=== PATIENT | female | born 1985 | race Caucasian/White ===

== ENCOUNTER 2019-06-07 11:23 | Outpatient (CLI) | payer OTHER, SELFPAY ==
[2019-06-08 16:00] LABS: Lamotrigine 7.8 mcg/mL (2.5 - 15.0)
== END 2019-06-07 11:43 ==
PROVIDERS: PCP Family Medicine; Visit Provider Psychiatry & Neurology Neurology
DX: G40.909 Epilepsy, unspecified, not intractable, without status epilepticus (principal); Z51.81 Encounter for therapeutic drug level monitoring
CPT/HCPCS: 36415; 80175

== ENCOUNTER 2021-03-08 09:29 | Emergency (ER) | payer OTHER, SELFPAY ==
[2021-03-08] VITALS (40 sets, daily range): BP systolic 98–132; BP diastolic 60–102; PULSE 75–118; RESP 11–24; TEMP 37.3; O2SAT 98–100
--- NOTE | 2021-03-08 09:30 | RT.EKG_ITS ---
APPROVED REPORT Exam: Resting ECG Reason for Exam: sob Patient Location: E HR:97 bpm ECG Measurements Heart Rate 97 AXIS DE 135 P 65 QRSd 92 QRS 48 QT 323 T 46 QTc 412 Conclusion Sinus rhythm...normal P axis, V-rate 60- 99 Probable left atrial enlargement...P >50mS, <-0.10mV V1
--- NOTE | 2021-03-08 09:30 | DI.CT_ITS ---
Exam(s) CT CHEST PE CTA EXAM: CT CHEST PE CTA CLINICAL HISTORY: shortness of breath. TECHNIQUE: Imaging Protocol: Axial CT angiography was performed with multi-slice acquisition and mu lti-planar and/or 3D reconstructions. CONTRAST MATERIAL: Intravenous: Omnipaque 350 Contrast volume:structured data in ml COMPARISON: No exams were available for comparison FINDINGS: CT angiography of the chest was performed with intravenous infusion of 100 cc of Omnipaque 350. The lungs are clear. No pleural effusion. Tracheobronchial tree appears intact. No evidence of pulmonary embolic disease. Thoracic aorta is of normal diameter, no thoracic aortic an eurysm or dissection, major branch vessels appear intact. No mediastinal or hilar adenopathy. Images obtained through the upper abdomen show unremarkable appearance of the visualized portions of the liver, spleen, pancreas, adrenals, and kidneys. IMPRESSION: Negative CT angiogram of the chest. No evidence of pulmonary embolic disease. RADIATION DOSE DELIVERED: 422.69mGy.cm Total DLP 422.69mGy.cm Total DLP 12.57mGy CTDIvol DATA REPOSITORY: All CT scans at this facility are submitted to the National Radiology Data Registry (NRDR) Dose Index Registry (DIR) with the [employer] (ACR). RADIATION OPTIMIZATION: All CT scans at this facility use at least one of these dose optimization te chniques: automated exposure control; mA and/or kV adjustment per patient size (includes targeted exa ms where dose is matched to clinical indication); or iterative reconstruction.
--- NOTE | 2021-03-08 09:48 | ED.GENADUL_ITS ---
Discharge Plan Disposition Patient Disposition: HOME Condition: Stable Discharge Details Clinical Impression: Palpitations, Shortness of breath Primary Care Provider: Sahara Petersen ED Provider: Yon Carreon Home Meds and New Rx's Prescriptions: Continued calcium carbonate-vitamin D3 500 mg(1,250mg) -200 unit tablet 1 tab PO BID RF: 0 hydrocodone-acetaminophen [[place]] 5-325 mg tablet 1 tab PO Q8H MDD 15mg PRN (Reason: pain) Qty: 20 RF: 0 lamotrigine 200 mg tablet 200 mg PO BID RF: 0 Multiple Vitamin, Womens Tablet 1 tab PO DAILY RF: 0 Nortrel 1/35 (28) 1-35 mg-mcg tablet 1 tab PO DAILY RF: 0 gabapentin 300 mg capsule 300 mg PO BID Qty: 180 RF: 3 Discharge Instructions Instructions: Heart Palpitations (ED) Additional Instructions: your vital signs, cat scan and lab work did not show any concerning findings at this time follow up with your primary care provider this week especially if symptoms continue if you feel more ill, have worsening trouble breathing or severe worsening pain return to the emergency department Medical Decision Making 35 yo female with hx of epilepsy who comes in with chief complaint of shortness of breath. She states she was diagnosed with covid last July and since then has had intermittent shortness of breath. She was outside and got into her car and felt palpitations and shortness of breath, had a o2 saturation monitor and said it was 80% so came here. She denies fevers, chest pain or cough. she is 100% on room air on arrival though is intermittently tachycardic to 120 in sinus rhythm. No leg swelling, no jvd, clear lung sounds. I suspect her low o2 monitor was from a faulty monitor or having cold fingers but given her heart rate and symptoms of palpitations will evaluate for nstemi. She has a moderate wells score given PE is just as likely a diagnosis as other possibilities so will evaluate with cta and reassess. Given clear lungs doubt asthma or reactive airway disease. pt stable and has normal vitals, all imaging and lab work unremarkable, will obtain delta troponin. HR now 80 pt remains stable and asymptomatic, repeat troponin negative, she is stable for d/c and advised to f/u with pcp return precautions given Differential Diagnosis Differential Diagnosis: covid, pneumonia, pe, cold fingers Medical Records Medical records reviewed: Yes I reviewed the patient's medical records. Imaging Data Radiologic Study: Attestation: I personally reviewed and interpreted this imaging study as follows: Imaging: CT Scan Radiologist's impression: No acute findings. Lab Data Lab results reviewed: Yes I reviewed the patient's lab results. ECG Data Attestation: I personally reviewed and interpreted this ECG (s) as follows: Prior ECG tracings: not available for review Interpretation: sinus rhythm, rate of HPI General Mode of arrival: ambulatory . Date/Time Provider Initiated Documentation: 03/08/21 09:32 . Limitations to Documentation: no limitations . Information obtained by: patient . History of Present Illness 35 year old F presents to the emergency department with the chief complaint of shortness of breath, described as moderate, Patient started experiencing this month(s) (5) and it has been intermittent. No relieving factors improve symptom(s), No exacerbating factors reported . Patient notes other (palpitations). Patient did receive the following treatments prior to arrival, none Related Data Home Medications Medication Instructions Recorded Confirmed lamotrigine 200 mg tablet 200 mg PO BID 04/30/19 03/08/21 bnxfwsfieyeb-Lw-fsle-minerals 1 tab PO DAILY tab 04/30/19 03/08/21 norethindrone 1 mg-ethinyl 1 tab PO DAILY 04/30/19 03/08/21 estradiol 35 mcg tablet calcium carbonate 500 mg (1,250 1 tab PO BID 06/07/19 03/08/21 mg)-vitamin D3 200 unit tablet hydrocodone 5 mg-acetaminophen 325 1 tab PO Q8H PRN #20 tab MDD 15mg 06/07/19 03/08/21 mg tablet gabapentin 300 mg capsule 300 mg PO BID #180 cap 08/25/20 03/08/21 Previous Rx's Medication Instructions Recorded hydrocodone 5 mg-acetaminophen 325 1 tab PO Q8H PRN #20 tab MDD 15mg 06/07/19 mg tablet gabapentin 300 mg capsule 300 mg PO BID #180 cap 08/25/20 Allergies Allergy/AdvReac Type Severity Reaction Status Date / Time No Known Allergies Allergy Verified 03/08/21 10:05 General Stated Complaint: RespSymp LEATHA: 3 Review of Systems All systems reviewed & are unremarkable except as noted in HPI and below Constitutional Constitutional: Denies chills, Denies fever(s) and Denies weakness Cardiovascular Cardiovascular: Denies chest pain Respiratory Respiratory: Denies cough Gastrointestinal Gastrointestinal: Denies abdominal pain, Denies nausea and Denies vomiting Musculoskeletal Musculoskeletal: Denies joint swelling Neurologic Neurologic: Denies weakness [facility] Medical History (Updated 03/08/21 @ 12:10 by Yon Carreon MD) Cervico-occipital neuralgia Cubital tunnel syndrome on right Depression Epilepsy 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; 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 Surgical History History of bunionectomy R 2016 S/P ear surgery L middle ear x2 Family History Mother Acute arthritis Epilepsy Hepatic failure due to alcoholism Alcohol abuse Maternal Grandfather Colon cancer Nephew Seizures Maternal Cousin Dystonia Maternal Uncle Diabetes Myocardial infarction Social History Smoking/Tobacco Use Status: Never Smoking risk assessment performed?: Yes Alcohol Intake: current Alcohol Intake frequency: holidays/special occasions only Drug use: Never Household members: significant other Number of Children: 0 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[employer]; 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 What is your relationship status?: never Panel score (0-1 are the most socially isolated patients): 0 Seatbelt use: always Do you feel safe at home: Yes Do you feel safe in your relationship?: Yes Additional Social history: MODERATE CAFFEINE INTAKE-2 CUPS OF COFFEE OR TEA PER DAY Exam Const General: no acute distress Orientation: alert HENMT Head: normal to inspection Ears: external ears normal General nose exam: external nose normal Mouth: moist mucous membranes Eyes General: appearance normal, both eyes and all related structures Neck Neck: normal visual inspection Resp Effort & Inspection: normal respiratory effort and able to speak in complete sentences Cardio Rate: regular rate Skin General skin exam: no rashes or lesions noted Neuro General: patient alert and patient oriented x3 Extrem General: normal to inspection Psych Mental Status: mental status grossly normal Course Vital Signs Vital signs: Vital Signs Temperature 37.3 C 03/08/21 09:37 Pulse 105 H 03/08/21 09:37 Respiratory Rate 20 03/08/21 09:37 Blood Pressure 132/84 03/08/21 09:37 Pulse Oximetry 100 03/08/21 09:37 Temperature 37.3 C 03/08/21 09:37 Temperature Source Temporal Artery Scan 03/08/21 09:37 Pulse 105 H 03/08/21 09:37 Respiratory Rate 20 03/08/21 09:37 Blood Pressure 132/84 03/08/21 09:37 Blood Pressure Position Sitting 03/08/21 09:37 Pulse Oximetry 100 03/08/21 09:37 Oxygen Delivery Method Room Air 03/08/21 09:37 Oxygen Flow Rate 0 03/08/21 09:37
[2021-03-08 10:01] LABS: Source Nasal/Nares
[2021-03-08 10:01] LABS: BE (Venous) 1 mmol/L (-2-3); HCO3 (Venous) 27 mmol/L (23-28); O2 Sat (Venous) 74 %; TCO2 (Venous) 24 mmol/L (24-29); pCO2 (Venous) 50 mmHg (41-51); pH (Venous) 7.34 (7.31-7.41); pO2 (Venous) 41 mmHg
[2021-03-08] MEDS: Normal Saline 1,000 ML 1000 ML IV (10:01)
[2021-03-08 10:02] LABS: Absolute Basophil Count 0.06 10^3/uL (0.0-0.2); Absolute Eosinophil Count 0.04 10^3/uL (0.0-0.7); Absolute Lymphocyte Count 2.03 10^3/uL (1.2-3.4); Absolute Monocyte Count 0.26 10^3/uL (0.1-0.8); Absolute Neutrophil Count 2.45 10^3/uL (1.2-6.7); Basophils % 1.2; Eosinophils % 0.8; HCT 42.9 % (36.0-46.0); HGB 14.3 g/dL (11.2-15.7); Lymphocytes % 41.9; MCH 28.5 pg (27.0-33.0); MCHC 33.3 % (32.0-36.0); MCV 85.6 fL (80-95); MPV 9.1 fL (8.0-11.0); Monocytes % 5.4; Neutrophils % 50.7; Nucleated RBC 0 %; Platelet Count 256 10^3/uL (130-400); RBC 5.01 10^6/uL (3.93-5.22); RDW 11.7 % (11.7-14.6); RDW-SD 36.5 fL; WBC 4.84 10^3/uL (4.4-10.8)
[2021-03-08] MEDS: Normal Saline - Diluent 50 ML VIAL IV (10:15)
[2021-03-08] MEDS: Normal Saline Flush 10 ML SYR IVP (10:15)
[2021-03-08] MEDS: Omnipaque 350 MG/ML 100 ML BTL IJ (10:16)
[2021-03-08 10:22] LABS: ALT 47 U/L (14-59); AST 21 U/L (15-37); Albumin 4.2 g/dL (3.4-5.0); Alkaline Phosphatase 67 U/L (46-116); BUN 11 mg/dL (7-18); Bilirubin, Total 0.4 mg/dL (0.2-1.0); CREATININE 0.9 mg/dL (0.55-1.02); Calcium 8.8 mg/dL (8.5-10.1); Chloride 105 mmol/L (98-107); Glucose 136 mg/dL (74-106); Potassium 3.6 mmol/L (3.5-5.1); Sodium 142 mmol/L (136-145); Total Protein 7.4 g/dL (6.4-8.2)
[2021-03-08 10:23] LABS: Troponin I < 0.05 ng/mL (<0.06)
--- NOTE | 2021-03-08 10:50 | DI.VRAD_ITS ---
PROCEDURE INFORMATION: Exam: CTA Chest With Contrast Exam date and time: 03/08/2021 9:43 AM Age: 35 years old Clinical indication: Patient HX: Shortness of breath, PT had covid in July 2020 TECHNIQUE: Imaging protocol: Computed tomographic angiography of the chest with contrast. 3D rendering (Not supervised by radiologist): MIP and/or 3D reconstructed images were created by the technologist. Radiation optimization: All CT scans at this facility use at least one of these dose optimization techniques: automated exposure control; mA and/or kV adjustment per patient size (includes targeted exams where dose is matched to clinical indication); or iterative reconstruction. Contrast material: OMNIPAQUE 350; Contrast volume: 100 ml; Contrast route: INTRAVENOUS (IV); COMPARISON: No relevant prior studies available. FINDINGS: Pulmonary arteries: Normal. No pulmonary emboli. Aorta: Unremarkable. No aortic aneurysm. No aortic dissection. Lungs: Unremarkable. No consolidation. No masses. Pleural spaces: Unremarkable. No pneumothorax. No pleural effusion. Heart: Unremarkable. No cardiomegaly. No pericardial effusion. Lymph nodes: Unremarkable. No enlarged lymph nodes. Bones/joints: Unremarkable. No acute fracture. Soft tissues: Unremarkable. IMPRESSION: No acute findings. Dictated and Authenticated by: Leslie Avila MD. Ordering:LESVIA Marvin MD
[2021-03-08 10:53] LABS: COVID-19 PCR Negative (Negative)
--- NOTE | 2021-03-08 11:24 | NUR.NOTE ---
Ambulated to bathroom, tolerated well.
[2021-03-08 13:04] LABS: Troponin I < 0.05 ng/mL (<0.06)
== END 2021-03-08 13:35 | disposition home or self-care (01) ==
PROVIDERS: Emergency Provider Emergency Medicine; PCP Family Medicine
DX: U09.9 Post COVID-19 condition, unspecified (principal); R06.02 Shortness of breath; R00.2 Palpitations; R00.0 Tachycardia, unspecified; Z20.822 Contact with and (suspected) exposure to COVID-19; Z03.818 Encounter for observation for suspected exposure to other biological agents ruled out
CPT/HCPCS: 36415; 71275; 80053; 82805; 87635; 90471; 90686; 93005; 96360; 99285; 83735; 84484; 85025; 93010; J3490

== ENCOUNTER 2021-06-04 13:00 | Outpatient (CLI) | payer OTHER, SELFPAY | END 2021-06-04 13:01 | disposition home or self-care (01) | LOC: RT 13:00 | PROVIDERS: PCP Nurse Practitioner; Visit Provider Psychiatry & Neurology Neurology | DX: R00.2 Palpitations (principal) | CPT/HCPCS: 93270 ==

== ENCOUNTER 2021-06-17 15:25 | Outpatient (REF) | payer OTHER, SELFPAY ==
--- NOTE | 2021-06-17 14:40 | PAPFT_PTH ---
PATIENT: Yarelis Hargrove LOC: [facility] U#:[id number] AGE/SX: 35/F ROOM: RE06/17/[address]: Rocio Carreon NP : 1985 BED: DIS: 06/17/2021 SPEC #: [id number] RECD: 06/17/21 17:47 STATUS: SONY PINON #: [id number] DARLENE: 06/17/21 14:[address]: Rocio Carreon NP DEPT: [facility] Cytology RECD BY: Elis Durbin ENTERED: 06/17/21 17:47 SP TYPE: PAPFT FABIOLA DR: Yelitza Kate APRN Tissues: 1 - CX/ENDOCX FOR PAP SMEARS Procedures: PAP THIN PREP/UVM Screening HPV DNA PROBE Comments: [id number]
== END 2021-06-17 15:26 | disposition home or self-care (01) ==
LOC: LBN 15:25
PROVIDERS: PCP Nurse Practitioner; Visit Provider Nurse Practitioner Women's Health
DX: Z12.4 Encounter for screening for malignant neoplasm of cervix (principal); Z11.51 Encounter for screening for human papillomavirus (HPV)
CPT/HCPCS: 88142; 87624

== ENCOUNTER 2021-07-01 16:13 | Outpatient (REF) | payer OTHER, SELFPAY ==
[2021-07-01 13:45] LABS: D-Dimer 207 ng/mlFEU (<500)
[2021-07-01 14:31] LABS: Calculated LDL 123 mg/dL (<100); Cholesterol 201 mg/dL (<200); HDL Cholesterol 68 mg/dL (40-60); NT-proBNP 57 pg/mL (<300); TSH (W/Ref FT4) 0.53 uIU/mL (0.36-3.74); Triglyceride 51 mg/dL (<150)
[2021-07-01 15:11] LABS: Hemoglobin A1C 5.1 % (<5.7)
[2021-07-02 08:23] LABS: IgA 155 mg/dL (85-499); IgG 730 mg/dL (610-1,616); IgM 97 mg/dL (35-242)
[2021-07-03 10:35] LABS: IgE 4 IU/mL (<158)
== END 2021-07-01 16:14 | disposition home or self-care (01) ==
LOC: LBN 16:13
PROVIDERS: PCP Nurse Practitioner; Visit Provider Student in an Organized Health Care Education/Training Program
DX: U09.9 Post COVID-19 condition, unspecified (principal)
CPT/HCPCS: 80061; 82784; 82785; 82787; 83036; 83880; 84443; 85379

== ENCOUNTER 2021-07-06 04:40 | Outpatient (CLI) | payer OTHER, SELFPAY ==
--- NOTE | 2021-07-06 09:02 | W.CARDEVENT ---
Date of service: 07/06/21 Time of Service: 09:02 Cardiac Event Recorder Referring Provider:: lila Indications:: palps Cardiac Event Note: This is a 30-day recorder order for indication of palpitations. ?The patient was normal sinus rhythm for majority the recording with an average heart rate of 87 bpm. ?There were 37 patient triggered events described as lightheadedness, fatigue, short of breath, dizziness. This patient triggered events were associated with sinus rhythm, sinus tachycardia as well as an occasional PVC. There was one episode of a 4 beat run of NSVT that was also symptomatic. ?There were no episodes of atrial fibrillation, no pauses greater than 3 seconds and no evidence of high degree heart block.
[2021-07-06] MEDS: Methacholine 100 MG VIAL IH (17:19)
[2021-07-06] MEDS: Albuterol HFA 18 GM 200 PUFF INH IH (17:19)
[2021-07-06] MEDS: Inhaler, Assist Device 1 EACH MC (17:19)
== END 2021-07-06 04:41 | disposition home or self-care (01) ==
PROVIDERS: PCP Nurse Practitioner; Visit Provider Student in an Organized Health Care Education/Training Program
DX: R06.09 Other forms of dyspnea (principal); R07.89 Other chest pain; U09.9 Post COVID-19 condition, unspecified; R94.2 Abnormal results of pulmonary function studies
CPT/HCPCS: 94060; 94070; 94726; 94729; 94010; J7674

== ENCOUNTER 2022-03-10 15:37 | Outpatient (CLI) | payer MEDICAID, SELFPAY ==
[2022-03-10 17:27] LABS: Abs Immature Grans 0.02 10^3/uL (0.0-0.06); Absolute Basophil Count 0.06 10^3/uL (0.0-0.2); Absolute Eosinophil Count 0.04 10^3/uL (0.0-0.7); Absolute Lymphocyte Count 1.99 10^3/uL (1.2-3.4); Absolute Monocyte Count 0.31 10^3/uL (0.1-0.8); Absolute Neutrophil Count 4.72 10^3/uL (1.2-6.7); Basophils % 0.8; Eosinophils % 0.6; HCT 40.1 % (36.0-46.0); HGB 13.5 g/dL (11.2-15.7); Immature Grans % 0.3; Lymphocytes % 27.9; MCH 28.8 pg (27.0-33.0); MCHC 33.7 % (32.0-36.0); MCV 86 fL (80-95); MPV 9.7 fL (8.0-11.0); Monocytes % 4.3; Neutrophils % 66.1; Platelet Count 315 10^3/uL (130-400); RBC 4.69 10^6/uL (3.93-5.22); RDW 12.6 % (11.7-14.6); RDW-SD 38.9 fL; WBC 7.14 10^3/uL (4.4-10.8)
[2022-03-12 10:29] LABS: IgE 9 IU/mL (<158)
[2022-03-12 15:56] LABS: Aspergillus Fumigatus IgE <0.35 kU/L; Aspergillus Niger, IgE <0.35 kU/L; Bermuda Grass IgE <0.35 kU/L; Cat Epithelium IgE <0.35 kU/L; Cedar, IgE <0.35 kU/L; Cladosporium IgE <0.35 kU/L; Cockroach IgE <0.35 kU/L; Cottonwood IgE <0.35 kU/L; Curvularia Lunata, IgE <0.35 kU/L; D Farinae IgE <0.35 kU/L; D Pteronyssinus IgE <0.35 kU/L; Dog Dander IgE <0.35 kU/L; Douglas Fir, IgE <0.35 kU/L; Epicoccum purpurascens IgE <0.35 kU/L; Fusarium moniliforme, IgE <0.35 kU/L (<0.35); Giant Ragweed IgE <0.35 kU/L; House Dust/Greer Lab, IgE <0.35 kU/L; Mouse Serum Protein IgE <0.35 kU/L; Penicillium chrysogenum IgE <0.35 kU/L; Silver Birch IgE <0.35 kU/L; Timothy Grass IgE <0.35 kU/L; White Pine, IgE <0.35 kU/L; Willow IgE <0.35 kU/L
[2022-03-16 09:52] LABS: CLASS 0; Cedar Red IgE <0.10 kU/L (<0.35)
== END 2022-03-10 15:38 | disposition home or self-care (01) ==
LOC: LBN 15:41
PROVIDERS: PCP Nurse Practitioner; Visit Provider Student in an Organized Health Care Education/Training Program
DX: J45.909 Unspecified asthma, uncomplicated (principal); Z01.82 Encounter for allergy testing
CPT/HCPCS: 86003; 82785; 85025

== ENCOUNTER → 2023-12-02 14:42 | Outpatient (CLI) | payer MEDICAID, SELFPAY ==
--- NOTE | 2023-12-02 09:45 | DI.RAD_ITS ---
Exam(s) XR KNEE LT 4V AP,LAT,BHUPENDRA,PAT EXAM: XR KNEE LT 4V AP,LAT,BHUPENDRA,PAT CLINICAL HISTORY: S89.92XA Injury LLL Likely meniscal tear. TECHNIQUE: 2D digital imaging was performed. Three views. COMPARISON: No exams were available for comparison FINDINGS: BONES: No acute fracture is present. No bony destructive lesion is seen. JOINTS: The knee is normally aligned. No joint effusion is seen. SOFT TISSUE: Normal. IMPRESSION: Normal radiographs of the left knee. DATA REPOSITORY: RADIATION DOSE DELIVERED:
--- OUTSIDE RECORDS SUMMARY | 2023-12-02 14:47 | XMS_ITS | Referral Summary ---
Author Organization [facility] Address [address] [place] [address] Care Team Providers Care Management Planner Name Role Phone None, Provider Primary Care Provider Brett Slade MD Unavailable [phone] Allergies No known active allergies Medications Medication Sig Dispensed Refills Start Date End Date Status LAMOTRIGINE ORAL Take 250 mg by mouth 2 times daily. Active norgestimate-ethinyl estradiol (ORTHO TRI-CYCLEN LO) 0.18/0.215/0.25 mg-25 mcg (28) tablet Take 1 Tab by mouth daily. Active MULTIVITAMIN ORAL Take by mouth 2 times daily. Active doxycycline (VIBRAMYCIN) 100 mg capsule Take 100 mg by mouth daily. Active clindamycin (CLEOCIN T) 1 % external solution Apply topically daily use thin film on affected area . Active spironolactone (ALDACTONE) 50 mg tablet Take 1 Tab by mouth 2 times daily. 180 Tab 0 06/06/2014 Active Active Problems Problem Noted Date Diagnosed Date Acne 04/05/2014 Social History Tobacco Use Types Packs/Day Years Used Date Smoking Tobacco: Never Smokeless Tobacco: Never Alcohol Use Standard Drinks/Week Comments No 0 (1 standard drink = 0.6 oz pur e alcohol) Interpersonal Safety Answer Date Record ed Physically Hurt Never 12/02/2019 Verbally Threaten Not on file 12/02/2019 Sex and Gender Information Value Date Recorded Sex Assigned at Not on file Gender Identity Not on file Sexual Orientation Not on file Plan of Treatment Not on file Care Teams Management Planner Relationship Specialty Start Date End Date None, Provider PCP - General 10/01/19 Brett Fregoso MD 10/01/19
--- OUTSIDE RECORDS SUMMARY | 2023-12-02 14:47 | XMS_ITS | Encounter Summary ---
Author Organization [facility] Address [address] [place] [address] Care Team Providers Care Curtain Stretcher Name Role Phone Brett Fregoso MD Primary Care Provider Reason for Visit * Reason Onset Date Comments Other 05/03/2014 Encounter Details Date Type Department Care Team (Late st Contact Info) Description 05/03/2014 Telephone [facility] Dermatology 3rd Floor [address] [id number] Silvina Morgan PA-C [address], [address] [place] [address] Other Social History Tobacco Use Types Packs/Day Years Used Date Smoking Tobacco: Never Smokeless Tobacco: Never Alcohol Use Standard Drinks/Week Comments No 0 (1 standard drink = 0.6 oz pur e alcohol) Sex and Gender Information Value Date Recorded Sex Assigned at Not on file Gender Identity Not on file Sexual Orientation Not on file documented as of this encounter Miscellaneous Notes * Telephone Encounter - Catalina Lopez - 05/03/2014 1517 EST Spoke with patient. Informed patient that her lab results were normal. Patient verbalized understanding and had no further questions. Catalina Lopez 05/03/2014 15:17 * Telephone Encounter - Ludwig James IV - 05/03/2014 1453 EST Patient returning call about lab results. Please call back. documented in this encounter Plan of Treatment Not on file documented as of this encounter Visit Diagnoses Not on filedocumented in this encounter Care Teams Curtain Stretcher Relationship Specialty Start Date End Date Brett Fregoso MD PCP - General 02/07/14 09/30/19 documented as of this encounter
--- OUTSIDE RECORDS SUMMARY | 2023-12-02 14:47 | XMS_ITS | Encounter Summary ---
Author Organization [facility] Address [address] [place] [address] Care Team Providers Care Assembly Inspector Helper Name Role Phone None, Provider Primary Care Provider Brett Slade MD Unavailable Encounter Details Date Type Department Care Team (Late st Contact Info) Description 10/22/2019 Lab Requisition [facility] Pathology & Laboratory Medicine - [address] [address] Gisele Veronica, SIGNAL INTELLIGENCE ANALYST [address] [place] [address] Encounter for other general examination Social History Tobacco Use Types Packs/Day Years Used Date Smoking Tobacco: Never Assessed Sex and Gender Information Value Date Recorded Sex Assigned at Not on file Gender Identity Not on file Sexual Orientation Not on file documented as of this encounter Plan of Treatment Not on file documented as of this encounter Procedures Procedure Name Priority Date/Time Associated Diagnosis Comments SURGICAL PATHOLOGY Today 10/22/2019 11 :00 EDT documented in this encounter Results * SURGICAL PATHOLOGY (10/22/2019 11:00 EDT) Final Diagnosis A. SKIN OF STERNUM, PUNCH BIOPSY: - Features consistent with dermal scar. See microscopic and comment. 10/26/2019 13:[address] [facility] at 1348 Attestation By the signature below, the attending physician certifies that they have 1) personally conducted a gross and/or microscopic examination of the described specimen(s), and/or personally interpreted the results of laboratory testing of the described specimen(s), and 2) personally rendered or confirmed the above diagnosis. 10/26/2019 13:49 [facility] at 1348 Diagnosis Comment Multiple levels of the biopsy have been reviewed. Best represented on deeper sections within the dermis is a nodular spindle cell proliferation which shows myofibroblastic differentiation, consistent with scar formation. Features to support a dermatofibroma are not noted, despite additional sections and immunohistochemical stains, Review of our clinical records does not reveal a prior biopsy from this site. Clinical correlation is recommended. Farmworkers slides of this case were reviewed at the intradepartmental consultation conference. 10/26/2019 13:49 [facility] Microscopic Description Sections consist of a punch biopsy of skin. Within the dermis is a somewhat ill-defined, nodular spindle cell proliferation with associated reactive blood vessels and thickened collagen. Patchy lymphomononuclear inflammation is also noted. aSMA (alpha Smooth Muscle Actin (asm-1, Leica) shows strong staining of the spindled cells. Factor XIII A (AC-1A1, [place]) is negative within the spindled cells. SOX-10 ALK PHOS (SP267, [place]) is negative within the spindled cells. Multiple levels have been reviewed. NOTE: One or more of the reagents used in immunoperoxidase testing in this case may not have been cleared or approved by the U.S. Food and Drug Administration (FDA). The FDA has determined that such clearance or approval is not necessary. These tests are used for clinical purposes. They should not be regarded as investigational or for research. These reagents' performance characteristics have been determined by [facility] and/or by the referring laboratory. The positive and negative controls worked appropriately. If immunoperoxidase staining has been performed on alcohol fixed cytology specimens, which has not been fully validated, the assays should be interpreted with caution and correlated with clinical data. This laboratory is certified under the Clinical Laboratory Improvement Amendments of 1988 (CLIA-88) as qualified to perform high complexity clinical laboratory testing.? 10/26/2019 13:49 [facility] Clinical History Irritated skin lesion that is enlarging BCC vs. Dermatofibroma 10/26/2019 13:[address] [facility] Gross Description A. Received in formalin labelled with proper patient identification (initials P, A) and not otherwise specified is a punch biopsy of dover skin (0.4 cm in diameter by 0.2 cm in depth). The specimen is submitted intact in A1. Tyra Hayde 10/23/2019 8:34 10/26/2019 13:[address] [facility] Scanned Images 10/26/2019 13:[address] [facility] Tissue TISSUE SPECIMEN FROM SKIN / Unknown 10/22/2019 11:00 EDT 10/23/2019 7:46 EDT Gisele Veronica APRN PATHOLOGY ORDERABLES [facility] [address] [place] [address] documented in this encounter Visit Diagnoses Diagnosis Encounter for other general examination documented in this encounter Care Teams Assembly Inspector Helper Relationship Specialty Start Date End Date None, Provider PCP - General 10/01/19 Brett Fregoso MD 10/01/19 documented as of this encounter
--- OUTSIDE RECORDS SUMMARY | 2023-12-02 14:47 | XMS_ITS | Encounter Summary ---
Author Organization [facility] Address [address] [place] [address] Care Team Providers Care Aircraft Maintenance Director Name Role Phone None, Provider Primary Care Provider Brett Slade MD Unavailable [phone] Encounter Details Date Type Department Care Team (Late st Contact Info) Description 06/18/2021 Lab Requisition [facility] Pathology & Laboratory Medicine - [address] [address] Rocio Carreon, MEDICAL LABORATORY TECHNICIAN [address] [place] [id number] Encounter for other general examination Social History [...] Procedure Name Priority Date/Time Associated Diagnosis Comments PAP TEST Today 06/17/2021 14:40 EST Encounter for other general examination HPV DNA DETECTION WITH GENOTYPING, PCR Today 06/17/2021 14:40 EST Encounter for other general examination documented in this encounter Results * HUMAN PAPILLOMAVIRUS (HPV) DETECTION-HIGH RISK TYPES (06/17/2021 14:40 EST) HPV other High Risk types, PCR Negative Negative 06/27/2021 15:01 [facility] Comment:No E6 or E7 mRNA is detected from HPV types 16,18,31,33,35,39,45,51,52,56,58,59,66, and 68 by classroom technology coach mediated amplification. Papanicolaou smear specimen (specimen) CERVIX UTERI STRUCTURE / Unknown 06/17/2021 14:40 EST 06/25/2021 11:56 EST Rocio Carreon APRN MICROBIOLOGY - NERAL ORDERABLES [facility] [address] [place] [address] * PAP TEST (06/17/2021 14:40 EST) Specimens A. Cervix and/or Endocervix , ThinPrep Imaging System with Manual Evaluation 06/27/2021 15:01 [facility] Specimen Adequacy Satisfactory for Evaluation - transformation zone component present 06/27/2021 15:01 [facility] General Categorization Negative for intraepithelial lesion or malignancy 06/27/2021 15:01 [facility] Attestation . 06/27/2021 15:01 [facility] at 1501 Clinical History See below 06/27/19 15:01 [facility] HPV The result for the Human Papillomavirus (HPV) Detection-High Risk Types is Negative. No E6 or E7 mRNA is detected from HPV types 16,18,31,33,35,39 ,45,51,52,56,58,5 9,66, and 68 by classroom technology coach mediated amplification.Cici ting was performed on specimen [id number] and was resulted on 06/27/2021 1452 EST by RA, LAB INSTRUMENT RESULTS IN 06/27/2021 15:01 [facility] Performing Lab [facility] 06/27/2021 15:01 [facility] Scanned Images 06/27/2021 15:01 EST [facility] Papanicolaou smear specimen (specimen) CERVIX UTERI STRUCTURE / Unknown 06/17/2021 14:40 EST 06/18/2021 10:53 EST Rocio A Lauri MEDICAL LABORATORY TECHNICIAN PATHOLOGY ORDERAB LES [facility] [address] [place] [address] documented in this encounter Visit Diagnoses Diagnosis Encounter for other general examination documented in this encounter Care Teams Aircraft Maintenance Director Relationship Specialty Start Date End Date None, Provider PCP - General 10/01/19 Brett Fregoso MD 10/01/19 documented as of this encounter
--- OUTSIDE RECORDS SUMMARY | 2023-12-02 14:47 | XMS_ITS | Encounter Summary ---
Author Organization [facility] Address [address] [place] [address] Care Team Providers Care Piped Buttonhole Machine Operator Name Role Phone None, Provider Primary Care Provider Brett Slade MD Unavailable [phone] Encounter Details Date Type Department Care Team (Late st Contact Info) Description 03/11/2022 Lab Requisition [facility] Pathology & Laboratory Medicine - [address] [address] Outr Resulting Lab, Provider Social History Tobacco Use Types Packs/Day Years [...] Procedure Name Priority Date/Time Associated Diagnosis Comments IGE Routine 03/10/2022 15:05 EST documented in this encounter Results * IGE (03/10/2022 15:05 EST) IgE 9 <158 IU/mL 03/12/2022 10:25 EST [facility] Blood VENOUS BLOOD / Unknown 03/10/2022 15:05 EST 03/11/2022 17:41 EST Provider Outr Resulting Lab CHEMISTRY & BLOOD GAS ORDERABLES [facility] [address] [place] [address] documented in this encounter Visit Diagnoses Not on filedocumented in this encounter Care Teams Piped Buttonhole Machine Operator Relationship Specialty Start Date End Date None, Provider PCP - General 10/01/19 Brett Fregoso MD 10/01/19 documented as of this encounter
--- OUTSIDE RECORDS SUMMARY | 2023-12-02 14:47 | XMS_ITS | Encounter Summary ---
Author Organization [facility] Address [address] [place] [address] Care Team Providers Care Horse Show Manager Name Role Phone Unavailable Primary Care Provider Unavailabl e Reason for Visit * Reason Onset Date Comments Requesting Sooner Appointment 01/16/2014 Encounter Details Date Type Department Care Team (Late st Contact Info) Description 01/16/2014 Telephone [facility] Dermatology 3rd Floor [address] [phone] Nikita Snell MD [address] [facility], [address] [place] [address] Requesting Sooner Appointment Social History Tobacco Use Types Packs/Day Years Used Date Smoking Tobacco: Never Assessed Sex and Gender Information Value Date Recorded Sex Assigned at Not on file Gender Identity Not on file Sexual Orientation Not on file documented as of this encounter Miscellaneous Notes * Telephone Encounter - Christine Barnes RN - 01/16/2014 1641 EDT Unable to reach patient Contacted Xin in Dr. Conrad's office to let her know that once again we were unable to reach patient We do not run a cancellation list. CHRISTINE BARNES RN 01/16/2014 16:42 * Telephone Encounter - Evon Ellison - 01/16/2014 1555 EDT Patient would like to request a sooner appointment. Her acne is red, swollen, big bumps, little tiny bumps, pimples this is all on her lower half of her face and neck. She is complaining that it hurts. 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 Please call patient. documented in this encounter Plan of Treatment Not on file documented as of this encounter Visit Diagnoses Not on filedocumented in this encounter
--- OUTSIDE RECORDS SUMMARY | 2023-12-02 14:47 | XMS_ITS | Encounter Summary ---
Author Organization [facility] Address [address] [place] [address] Care Team Providers Care Decorator Lighting Fixtures Name Role Phone Brett Fregoso MD Primary Care Provider [phone] Reason for Visit * Reason Onset Date Comments Prior Auth, Medication 06/06/2014 Encounter Details Date Type Department Care Team (Late st Contact Info) Description 06/06/2014 [facility] 5th [facility] [address] [phone] Henry Jarvis RN Prior Auth, Medication Social History Tobacco Use Types Packs/Day Years Used Date Smoking Tobacco: Never Smokeless Tobacco: Never Alcohol Use Standard Drinks/Week Comments No 0 (1 standard drink = 0.6 oz pur e alcohol) Sex and Gender Information Value Date Recorded Sex Assigned at Not on file Gender Identity Not on file Sexual Orientation Not on file documented as of this encounter Ordered Prescriptions Prescription Sig Dispensed Refills Start Date End Da te spironolactone (ALDACTONE) 50 mg tablet Take 1 Tab by mouth 2 times daily. 180 Tab 0 06/06/2014 documented in this encounter Miscellaneous Notes * Telephone Encounter - Henry Jarvis RN - 06/07/2014 0908 EST Spoke to [place] Medication does not need pre authorization. 3 month supply was required by insurance company and now that they have received it, insurance has covered the cost. Medication has been filled and is ready for patient to sheepskin pickler. * Telephone Encounter - Andrea Moreira - 06/06/2014 1640 EST A prior authorization is needed for spironolactone (ALDACTONE) 50 mg tablet. * Telephone Encounter - Henry Jarvis RN - 06/06/2014 1546 EST (Please refer to previous refill encounter 06/06/14) Spoke to patient. She is currently not or . Remains on OCP Denies any side effects of medication. States her insurance is requires a 3 month prescription with any fdc treatment or they will not cover prescription Patient is requesting refill to be changed to a 3 month supply Patient last seen on 04/05/14 by Stacie Morgan PA-C Next FUR: 07/04/14 Dx: Acne Refill request: spironolactone (ALDACTONE) 50 mg tablet Last prescribed: 06/06/14 with 1 month supply no refills Must be authorized by the provider Last Labs: 05/01/14 ([facility] 05/08/14) HENRY JARVIS RN 06/06/2014 15:47 Done. Ignore other note. Silvina Morgan PA-C 16:38 06/06/2014 documented in this encounter Plan of Treatment Not on file documented as of this encounter Visit Diagnoses Not on filedocumented in this encounter Discontinued Medications Medication Sig Discontinue Reason Start Date End Da te spironolactone (ALDACTONE) 50 mg tablet Take 1 Tab by mouth 2 times daily. Reorder 06/06/2014 06/06/2014 documented as of this encounter Care Teams Decorator Lighting Fixtures Relationship Specialty Start Date End Date Brett Fregoso MD PCP - General 02/07/14 09/30/19 documented as of this encounter
--- OUTSIDE RECORDS SUMMARY | 2023-12-02 14:47 | XMS_ITS | Encounter Summary ---
Author Organization [facility] Address [address] [place] [address] Care Team Providers Care Pick Up Operator Name Role Phone None, Provider Primary Care Provider Brett Slade MD Unavailable [phone] Encounter Details Date Type Department Care Team (Late st Contact Info) Description 04/29/2020 Lab Requisition [facility] Pathology & Laboratory Medicine - [address] [address] Outr Resulting Lab, Provider Social History Tobacco [...] Procedure Name Priority Date/Time Associated Diagnosis Comments DO NOT ORDER STANDALONE - BROAD COVID TEST Today 04/29/2020 14:29 EST COVID-19 TESTING Routine 04/29/2020 14:2 9 EST documented in this encounter Results * DO NOT ORDER STANDALONE - BROAD COVID TEST (04/29/2020 14:29 EST) COVID-19 rt-PCR Result NEGATIVE Negative 04/30/2020 18:18 EST [facility] Comment: 2019-novel Coronavirus (2019-nCoV) not detected by the qRT-PCR assay. Consider testing for other respiratory viruses or re-collecting for 2019-nCoV testing. Note: Optimum timing for peak viral levels during infections caused by 2019-nCoV have not been determined. Collection of multiple specimens from the same patient may be necessary to detect the virus. Limitations Positive results are indicative of active infection with SARS-CoV-2 but do not rule out bacterial infection or co-infection with other viruses. The agent detected may not be the definite cause of disease. In addition, detection of viral RNA may not indicate the presence of infectious virus or that SARS-CoV-2 is the causative agent for clinical symptoms. Negative results do not preclude SARS-CoV-2 infection and should not be used as the sole basis for patient management decisions. Negative results must be combined with clinical observations, patient history, and epidemiological information. False negative results may also occur if amplification inhibitors are present in the specimen or if inadequate numbers of organisms are present in the specimen. Optimum specimen types and timing for peak viral levels during infections caused by SARS-CoV-2 have not been fully determined. Collection of multiple specimens (types and time points) from the same patient may be necessary to detect the virus. The test was validated for use with upper respiratory specimens obtained via nasopharyngeal or oropharyngeal swabs in VTM, UTM, M4, M5, M6, saline, and MTM media. The performance of this test has not been established for other specimens. Specimens collected using other FDA recommended Specimen Collection Materials listed in the FDA COVID-19 Diagnostic [employer] communication (July 26, 2019) are processed with the caveat that they were not all validated for use with this test and the result must be interpreted in this context. Furthermore, a false negative results may occur if a specimen is improperly collected, transported or handled. If the virus mutates in the RT-PCR target region, SARS-CoV-2 may not be detected or may be detected less predictably. Inhibitors or other types of interference may produce a false negative result. An interference study evaluating the effect of common cold medications was not performed. This test is not FDA-cleared but its performance characteristics were established by our CLIA-certified, CAP-accredited, high complexity laboratory in accordance with CLIA regulations, [employer] (CAP) guidelines (Jul 19, 2019), and FDA guidance (Jun 30, 2019). This test is only for use under the Food and Drug Administration's Emergency Use Authorization. Swab ENTIRE NASOPHARYNX / Unknown 04/29/2020 14:29 EST 04/29/2020 22:10 EST Provider Outr Resulting Lab MICROBIOLOGY - GENERAL ORDERABLES [facility] [place] * COVID-19 TESTING (04/29/2020 14:29 EST) [facility] COVID-19 rt-PCR Result NEGATIVE Negative 04/30/2020 21:20 EST [facility] Comment: 2019-novel Coronavirus (2019-nCoV) not detected by the qRT-PCR assay. Consider testing for other respiratory viruses or re-collecting for 2019-nCoV testing. Note: Optimum timing for peak viral levels during infections caused by 2019-nCoV have not been determined. Collection of multiple specimens from the same patient may be necessary to detect the virus. Limitations Positive results are indicative of active infection with SARS-CoV-2 but do not rule out bacterial infection or co-infection with other viruses. The agent detected may not be the definite cause of disease. In addition, detection of viral RNA may not indicate the presence of infectious virus or that SARS-CoV-2 is the causative agent for clinical symptoms. Negative results do not preclude SARS-CoV-2 infection and should not be used as the sole basis for patient management decisions. Negative results must be combined with clinical observations, patient history, and epidemiological information. False negative results may also occur if amplification inhibitors are present in the specimen or if inadequate numbers of organisms are present in the specimen. Optimum specimen types and timing for peak viral levels during infections caused by SARS-CoV-2 have not been fully determined. Collection of multiple specimens (types and time points) from the same patient may be necessary to detect the virus. The test was validated for use with upper respiratory specimens obtained via nasopharyngeal or oropharyngeal swabs in VTM, UTM, M4, M5, M6, saline, and MTM media. The performance of this test has not been established for other specimens. Specimens collected using other FDA recommended Specimen Collection Materials listed in the FDA COVID-19 [employer] communication (July 26, 2019) are processed with the caveat that they were not all validated for use with this test and the result must be interpreted in this context. Furthermore, a false negative results may occur if a specimen is improperly collected, transported or handled. If the virus mutates in the RT-PCR target region, SARS-CoV-2 may not be detected or may be detected less predictably. Inhibitors or other types of interference may produce a false negative result. An interference study evaluating the effect of common cold medications was not performed. This test is not FDA-cleared but its performance characteristics were established by our CLIA-certified, CAP-accredited, high complexity laboratory in accordance with CLIA regulations, [employer] (CAP) guidelines (Jul 19, 2019), and FDA guidance (Jun 30, 2019). This test is only for use under the Food and Drug Administration's Emergency Use Authorization. Performing Lab [facility] 04/30/2020 21:20 EST [facility] Swab 04/29/2020 14:2 9 EST 04/29/2020 22:10 EST Provider Outr Resulting Lab MICROBIOLOGY - GENERAL ORDERABLES Performing Organization Address City/State/[facility] Co de Phone Number [facility] [address] [place], [place] [id number] [place] [address] LABORATORY [place], [place] documented in this encounter Visit Diagnoses Not on filedocumented in this encounter Care Teams Pick Up Operator Relationship Specialty Start Date End Date None, Provider PCP - General 10/01/19 Brett Fregoso MD 10/01/19 documented as of this encounter
--- OUTSIDE RECORDS SUMMARY | 2023-12-02 14:47 | XMS_ITS | Encounter Summary ---
Author Organization [facility] Address [address] [place] [address] Care Team Providers Care Underwriting Specialist Name Role Phone Unavailable Primary Care Provider Unavailabl e Encounter Details Date Type Department Care Team (Late st Contact Info) Description 07/15/2005 Before PRISM Converted Visit (Maple) [facility] - Maple conversion [address] [place] [address] Tristin Ellis MD [address] [facility], [address] [place] [phone] Social History Tobacco Use Types Packs/Day Years Used Date Smoking Tobacco: Never Assessed Sex and Gender Information Value Date Recorded Sex Assigned at Not on file Gender Identity Not on file Sexual Orientation Not on file documented as of this encounter Progress Notes * Tristin Ellis MD - 04/11/2009 1145 EST DIVISION OF OTOLARYNGOLOGY PROGRESS/FOLLOWUP NOTE - 07/15/2005 SUBJECTIVE: Yarelis Hargrove is seen in follow up after her left revision ossiculoplasty with an incusinterposition on 05/25/[address] Muller. She representstoday with some persistent left ear pain for the last several days. She has had no drainage or fevers and her hearing remains improved from pre operatively. OBJECTIVE: On examination today she is alert and in no acute distress. The left ear was examined under the otologic microscope. There was a small amount of bloody crust and cerumen which was removed.Otherwise, the ear canal looked basically normal with expected postsurgical healing. There is no evidence of infection or any other concerning abnormalities. ASSESSMENT/PLAN: Healing appropriately after recent left revision ossiculoplasty. She has some mildpersistent pain for which I have recommended she continue the Ciprodex otic drops for an additionalfive days and use antl-gbi-grlozir Advil or Ibuprofen. She will follow up as scheduled with Dr. Muller in July or sooner if she should have further difficulty. I have reassured her that the ear looks quite good. Signed by Tristin Ellis MD 07/19/2005 17:18 Rachel Lockhart MD Tristin Ellis MD - Tristin Ellis MD A - mld Job ID: tape Document ID: [id number] cc: MD Radha Rivera MD documented in this encounter Plan of Treatment Not on file documented as of this encounter Visit Diagnoses Not on filedocumented in this encounter
--- OUTSIDE RECORDS SUMMARY | 2023-12-02 14:47 | XMS_ITS | Clinical Summary ---
Author Organization [facility] Address [address] [place] [address] Care Team Providers Care Internal Investigator Name Role Phone None, Provider Primary Care Provider Brett Slade MD Unavailable [phone] Allergies No known active allergies Medications Medication [...] Problem Noted Date Diagnosed Date Acne 04/05/2014 Medical History Medical History Date Comments Acne Varicella Family History Medical History Relation Comments Hearing Loss Brother Heart Disease Father Arthritis Maternal Aunt Heart Disease Maternal Aunt Arthritis Maternal Uncle Hypertension Maternal Uncle Depression Mother Early Mother Miscarriages / Stillbirths Mother Depression Sister 1 Depression Sister 2 Relation Status Comments Brother Alive Father Maternal Aunt Alive Maternal Uncle Alive Mother Paternal Aunt Alive Paternal Uncle Alive Sister 1 Alive Sister 2 Alive Social History Tobacco Use Types Packs/Day Years [...] on file Sexual Orientation Not on file Obstetrics History Plan of Treatment Health Maintenance Due Date Last Done Comments Hepatitis C Screen 1987 Hepatitis B Vaccine (1 of 3 - 19+ 3-dose series) 12/20 COVID-19 Vaccine (2022-24 season) 2022 Care Teams Internal Investigator Relationship Specialty Start Date End Date None, Provider PCP - General 10/01/19 Brett Fregoso MD 10/01/19
--- OUTSIDE RECORDS SUMMARY | 2023-12-02 14:47 | XMS_ITS | Encounter Summary ---
Author Organization [facility] Address [address] [place] [address] Care Team Providers Care Crate Repairer Name Role Phone None, Provider Primary Care Provider Brett Slaed MD Unavailable [phone] Encounter Details Date Type Department Care Team (Late st Contact Info) Description 07/01/2021 Lab Requisition [facility] Pathology & Laboratory Medicine - [address] [address] Outr Resulting Lab, Provider Social History Tobacco [...] Procedure Name Priority Date/Time Associated Diagnosis Comments IMMUNOGLOBULINS Routine 07/01/2021 10:10 EST IGE Routine 07/01/2021 10:10 EST documented in this encounter Results * IGE (07/01/2021 10:10 EST) IgE 4 <158 IU/mL 07/03/2021 10:30 EST [facility] Blood VENOUS BLOOD / Unknown 07/01/2021 10:10 EST 07/01/2021 21:30 EST Provider Outr Resulting Lab CHEMISTRY & BLOOD GAS ORDERABLES Performing Organization Address [facility] Co de Phone Number [facility] [address] [place] [address] * IMMUNOGLOBULINS (07/01/2021 10:10 EST) IgG 730 610-1,616 mg/dL 07/02/2021 8:18 EST [facility] IgA 155 85 - 499 mg/dL 07/02/2021 8:18 EST [facility] IgM 97 35 - 242 mg/dL 07/02/2021 8:18 EST [facility] Blood VENOUS BLOOD / Unknown 07/01/2021 10:10 EST 07/01/2021 21:30 EST Provider Outr Resulting Lab CHEMISTRY & BLOOD GAS ORDERABLES Performing Organization Address [facility] de Phone Number [facility] [address] [place] [address] documented in this encounter Visit Diagnoses Not on filedocumented in this encounter Care Teams Crate Repairer Relationship Specialty Start Date End Date None, Provider PCP - General 10/01/19 Brett Fregoso MD 10/01/19 documented as of this encounter
--- OUTSIDE RECORDS SUMMARY | 2023-12-02 14:47 | XMS_ITS | Encounter Summary ---
Author Organization [facility] Address [address] [place] [address] Care Team Providers Care Sales Store Checker Name Role Phone Unavailable Primary Care Provider Unavailabl e Reason for Visit * Reason Onset Date Comments Provider Referred 01/14/2014 Encounter Details Date Type Department Care Team (Late st Contact Info) Description 01/14/2014 Telephone [facility] Dermatology 3rd Floor [address] [id number] Nikita Snell MD [address] [facility], [address] [place] [address] Provider Referred Social History Tobacco Use Types Packs/Day Years Used Date Smoking Tobacco: Never Assessed Sex and Gender Information Value Date Recorded Sex Assigned at Not on file Gender Identity Not on file Sexual Orientation Not on file documented as of this encounter Miscellaneous Notes * Telephone Encounter - Christine Barnes RN - 01/16/[address] Lu's office-they will contact patient with appointment Patient scheduled 04/05/14 at 330 with Silvina Morgan PA-C. CHRISTINE BARNES RN 01/16/2014 15:30 * Telephone Encounter - Georgina Christiansen - 01/14/2014 1621 EDT Notes received and scanned. * Telephone Encounter - Evon Ellison - 01/14/2014 1427 EDT Sahara Petersen MD is the referring provider, phone [phone], for severe acne and she would like the patient seen within one month. Xin is the caller. Please call patient and Xin with appointment date and time. Xin faxing notes. documented in this encounter Plan of Treatment Not on file documented as of this encounter Visit Diagnoses Not on filedocumented in this encounter
--- OUTSIDE RECORDS SUMMARY | 2023-12-02 14:47 | XMS_ITS | Encounter Summary ---
Author Organization [facility] Address [address] [place] [address] Care Team Providers Care Sand Digger Name Role Phone Brett Fregoso MD Primary Care Provider [phone] Reason for Visit * Reason Comments New Patient Visit acne on jawline and neck Encounter Details Date Type Department Care Team (Late st Contact Info) Description 04/05/2014 15:30 EST Office Visit [facility] Dermatology 3rd Floor [address] [address] Silvina Morgan, ДМИТРИЙ-C [address] [place] [address], [address] [place] [address] Acne (Primary Dx); Encounter for new medication prescription Social History Tobacco Use Types Packs/Day Years Used Date Smoking Tobacco: Never Smokeless Tobacco: Never Alcohol Use Standard Drinks/Week Comments No 0 (1 standard drink = 0.6 oz pur e alcohol) Sex and Gender Information Value Date Recorded Sex Assigned at Not on file Gender Identity Not on file Sexual Orientation Not on file documented as of this encounter Patient Instructions * Patient Instructions* Silvina Morgan PA - 04/05/2014 15:53 EST SPIRONOLACTONE (ALDACTONE) Spironolactone Basics: Spironolactone is a diuretic (water pill) that is used to treat acne due to its anti-androgen (anti-testosterone) effects. Spironolactone is not approved by the FDA for treatment of acne, although it is commonly used in women for this purpose. Spironolactone works most effectively when it is taken daily as prescribed. Everyone misses a dose occasionally, but missing many doses or starting and stopping the medication will affect its efficacy. Spironolactone often takes several months to work; try to be patient. Spironolactone usually does not cause stomach upset, but if it does it can be taken with food. Spironolactone should not be taken if you are or planning to get . It can affect the development of a male fetus???s genitalia. Spironolactone should also not be taken if you are . Possible Side Effects: Spironolactone is usually well tolerated, but just like any medication, side effects are possible. More common side effects include: irregular menses, midcycle spotting, breast tenderness and headaches. Very rarely, spironolactone can cause a rash, liver, kidney or blood problems. Although Spironolactone is a diuretic (water pill), it is a very weak one, and most patients do notnotice a significant increase in urination. Spironolactone can increase the level of potassium in your bloodstream. This is generally only an issue for people with kidney disease, but some people suggest avoiding salt substitutes that contain potassium while taking spironolactone. You should stop taking spironolactone and call the office if any of the following occur: a sudden severe rash, severe or daily headaches, vomiting, visual changes, severe abdominal pain, unusual bleeding or bruising or jaundice (yellowing of eyes and skin). documented in this encounter Ordered Prescriptions Prescription Sig Dispensed Refills Start Date End Da te spironolactone (ALDACTONE) 50 mg tablet Take 1 Tab by mouth 2 times daily. 60 Tab 3 04/05/2014 06/06/2014 documented in this encounter Progress Notes * Benita Navarro MD - 05/15/2014 2420 EST I was the supervising physician and was present in the clinic during this visit. Note reviewed, patient was not seen by me. Benita Navarro MD * Silvina Morgan PA - 04/05/2014 1076 EST DERMATOLOGY OUT PATIENT PROGRESS NOTE ACNE - NEW PATIENT SUBJECTIVE: Yarelis is a 28 y.o. female who presents today for discussion of acne. This has been a problem for about 6-8 months. Today is a usual day for her breakouts. She cannot think of anything in particularthat changed around the time her breakouts started. 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 I reviewed outside notes from Sahara Petersen MD's office. OTC products tried: tea tree oil wash, benzoyl peroxide Prescription topicals tried: using clindamycin 1% solution Prescription antibiotics tried: taking doxycycline 100 mg daily with minimal improvement Mid-cycle or pre-menstrual flares: no OCP? yes - has been on Ortho Tri-Cyclen low for about 10 years Depo-provera? no Other skin concerns: 1. Bumpy breakouts on cheeks and forehead I reviewed the past medical history, social history, current medications and allergies. Current Outpatient Prescriptions Medication Sig Dispense Refill ??? clindamycin (CLEOCIN T) 1 % external solution Apply topically daily use thin film on affected area . ??? doxycycline (VIBRAMYCIN) 100 mg capsule Take 100 mg by mouth daily. ??? LAMOTRIGINE ORAL Take 250 mg by mouth 2 times daily. ??? MULTIVITAMIN ORAL Take by mouth 2 times daily. ??? norgestimate-ethinyl estradiol (ORTHO TRI-CYCLEN LO) 0.18/0.215/0.25 mg-25 mcg (28) tablet Take1 Tab by mouth daily. No current facility-administered medications for this visit. OBJECTIVE: No apparent distress. Healthy appearing female sitting comfortably. Appropriate affect and demeanor. Skin exam: 1. Face, neck - across the forehead and cheeks are multiple open and closed comedones; along the jawline extending inferiorly onto the anterior and lateral aspects of the neck are extensive inflammatory papules 2. Upper back/shoulders: clear 3. Chest: clear 4. Neck: as above 5. Other: no LABS: According to the note from her PCPs office TSH, free testosterone and DHEAS were done. Patient states these were all normal. ASSESSMENT: 1. Acne - comedonal across forehead and cheeks; severe papular acneiform eruption along jawline andneck in a hormonal distribution 2. Encounter for new medication prescription POTASSIUM PLAN: 1. From the history, there is nothing in particular that points to any type of reason for this severe breakout. Even though she is very active and sweat a lot over the summer with her job, this does not explain the distribution of her current acne. 2. For now, she should continue the doxycycline 100 mg daily; she has been on the same OCP for manyyears and I do not think we need to change that at this time. Since she is on the OCP and does not desire , we will add spironolactone 50 mg twice daily for the next few months to see if this helps at all with her breakouts. We discussed the use of spironolactone which has anti- androgenic properties and may help with her particular distribution of acne. All of the following were discussed: Possible Side Effects: Spironolactone is usually well tolerated, but just like any medication, side effects are possible. More common side effects include: irregular menses, midcycle spotting, breast tenderness and headaches. Very rarely, spironolactone can cause a rash, liver, kidney or blood problems. Although Spironolactone is a diuretic (water pill), it is a very weak one, and most patients do notnotice a significant increase in urination. Spironolactone can increase the level of potassium in your bloodstream. This is generally only an issue for people with kidney disease, but some people suggest avoiding salt substitutes that contain potassium while taking spironolactone. She should stop taking spironolactone and call the office if any of the following occur: a sudden severe rash, severe or daily headaches, vomiting, visual changes, severe abdominal pain, unusual bleeding or bruising or jaundice (yellowing of eyes and skin). We will start at 50 mg twice a day. 3. Emphasized the importance of compliance and patience with treatment 4. Discussed the basic pathophysiology of acne, the role of genetics and hormones and the differentmedications and how they work. 5. Gentle cleansing twice a day and be sure all washes, lotions, and makeups used on the skin are labeled noncomedogenic. Consider Neutrogena, Cetaphil, Cerave, Vanicream, and Aveeno products 6. Potassium to be drawn in about 3 weeks and faxed over 7. Before starting the prescription, I recommend that she call her neurologist to be sure that thisis safe for her to take given her seizure disorder. She thinks that she was put on a low dose OCP because of her seizures and wants to be sure that nothing affects her lamotrigine which controls her seizures well. 8. Follow-up: 3 months - call with any questions or medication issues. Silvina Morgan PA-C 15:58 04/05/2014 Please note: Parts of this documentation were created with the use of voice recognition software and may contain ship laborer errors The attending physician was available for this visit. * Catalina Lopez - 04/05/2014 1524 EST Review of Systems Constitutional: Positive for fatigue. Negative for fever and unexpected weight change. HENT: Negative for mouth sores. Eyes: Negative for pain. Respiratory: Negative for cough and shortness of breath. Cardiovascular: Negative for chest pain and palpitations. Gastrointestinal: Negative for nausea, vomiting, abdominal pain, diarrhea, constipation and blood in stool. Genitourinary: Negative for dysuria, frequency and hematuria. Musculoskeletal: Positive for myalgias, arthralgias and muscle stiffness in the morning. Negative for joint swelling. Skin: Negative for rash. Neurological: Negative for numbness and headaches. Endo/Heme/Allergies: Does not bruise/bleed easily. Psychiatric/Behavioral: Negative for sleep disturbance. The patient is not nervous/anxious. Catalina Lopez She works a very physical job. Silvina Morgan PA-C 17:19 04/05/2014 documented in this encounter Plan of Treatment Not on file documented as of this encounter Visit Diagnoses Diagnosis Acne- Primary Other acne Encounter for new medication prescription Other specified examination documented in this encounter Historical Medications * This list may reflect changes made after this encounter. Medication Sig Dispensed Refills Start Date End Date clindamycin (CLEOCIN T) 1 % external solution Apply topically daily use thin film on affected area . doxycycline (VIBRAMYCIN) 100 mg capsule Take 100 mg by mouth daily. MULTIVITAMIN ORAL Take by mouth 2 times daily. norgestimate-ethinyl estradiol (ORTHO TRI-CYCLEN LO) 0.18/0.215/0.25 mg-25 mcg (28) tablet Take 1 Tab by mouth daily. LAMOTRIGINE ORAL Take 250 mg by mouth 2 times daily. added in this encounter Care Teams Sand Digger Relationship Specialty Start Date End Date Brett Fregoso MD PCP - General 02/07/14 09/30/19 documented as of this encounter
--- OUTSIDE RECORDS SUMMARY | 2023-12-02 14:47 | XMS_ITS | Encounter Summary ---
Author Organization [facility] Address [address] [place] [address] Care Team Providers Care Contact Finger Assembler Name Role Phone Brett Fregoso MD Primary Care Provider [phone] Reason for Visit * Reason Onset Date Comments Medications Refill 06/06/2014 Encounter Details Date Type Department Care Team (Late st Contact Info) Description 06/06/2014 Refill [facility] Dermatology 3rd Floor [address] [id number] Silvina Morgan, PA-C [address] [facility], [address] [place] [address] Medications Refill Social History Tobacco Use Types Packs/Day Years [...] by mouth 2 times daily. 60 Tab 0 06/06/2014 06/06/2014 documented in this encounter Miscellaneous Notes * Telephone Encounter - Silvina Morgan PA - 06/06/2014 4436 EST Please call pharmacy to OK 3 months supply and please keep trying to reach her to make sure she follows up. stacie Latham * Telephone Encounter - Henry Jarvis RN - 06/06/2014 1542 EST Spoke to patient. She is currently not or . Remains on OCP Denies any side effects of medication. States her insurance is requires a 3 month prescription with any assisted treatment. Patient is requesting a 3 month supply Separate Refill encounter started (This encounter was accidentally closed). HENRY JARVIS RN 06/06/2014 15:45 * Telephone Encounter - Evon Ellison - 06/06/2014 1250 EST Please call patient. * Telephone Encounter - Henry Jarvis RN - 06/06/2014 1221 EST Patient last seen on 04/05/14 by Stacie Morgan PA-C Next FUR: 07/04/14 Dx: Acne Refill request: spironolactone (ALDACTONE) 50 mg tablet Last prescribed: 04/05/14 Must be authorized by the provider Last Labs: 05/01/14 ([employer] 05/08/14) Attempted to call patient to ask if currently or , mailbox is full. Per notes/med record, patient is on OCP Will forward to VERA Trevino RN 06/06/2014 12:29 Refilled for 1 month only (to get to follow up). Please keep trying to call. Silvina Morgan PA-C 12:43 06/06/2014 * Telephone Encounter - Georgina Christiansen - 06/06/2014 1208 EST Patient's insurance has changed and can only get her assisted medication in a 3 month supply. documented in this encounter Plan of Treatment Not on file documented as of this encounter Visit Diagnoses Not on filedocumented in this encounter Discontinued Medications Medication Sig Discontinue Reason Start Date End Da te spironolactone (ALDACTONE) 50 mg tablet Take 1 Tab by mouth 2 times daily. Reorder 04/05/2014 06/06/2014 documented as of this encounter Care Teams Contact Finger Assembler Relationship Specialty Start Date End Date Brett Fregoso MD PCP - General 02/07/14 09/30/19 documented as of this encounter
--- OUTSIDE RECORDS SUMMARY | 2023-12-02 14:47 | XMS_ITS | Encounter Summary ---
Author Organization [facility] Address [address] [place] [address] Care Team Providers Care Ivory Polisher Name Role Phone Unavailable Primary Care Provider Unavailabl e Reason for Visit * Reason Onset Date Comments Returning Call 01/17/2014 Encounter Details Date Type Department Care Team (Late st Contact Info) Description 01/17/2014 Telephone [facility] Dermatology 3rd Floor [facility] [address] [place], [place] [phone] Shanda Cazares MD [address] [place], [place] [phone] Returning Call Social History Tobacco Use Types Packs/Day Years Used Date Smoking Tobacco: Never Assessed Sex and Gender Information Value Date Recorded Sex Assigned at Not on file Gender Identity Not on file Sexual Orientation Not on file documented as of this encounter Miscellaneous Notes * Telephone Encounter - Christine Barnes RN - 01/18/2014 1016 EDT Patient has started Doxycyline and Cleocin T by her primary care provider Reviewed Acne patient educational information with patient Patient is scheduled 04/16/14 at [facility] with Silvina Morgan PA-C Explained to patient that this is good timing for her appointment to see if her current acne regimeis working 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 CHRISTINE BARNES RN 01/18/2014 10:19 * Telephone Encounter - Georgina Christiansen - 01/17/2014 1235 EDT Patient returning call. * Telephone Encounter - Princess Ospina - 01/17/2014 0922 EDT Patient returned call regarding a sooner appointment. documented in this encounter Plan of Treatment Not on file documented as of this encounter Visit Diagnoses Not on filedocumented in this encounter
--- OUTSIDE RECORDS SUMMARY | 2023-12-02 14:48 | XMS_ITS | Clinical Summary ---
Author Organization [facility] Address [facility] [place] [address] Care Team Providers Care Front Desk Monitor Name Role Phone Yelitza Kate APRN Primary Care Provider [phone] Allergies No known active allergies Medications Medication Sig Dispensed Refills Start Date End Date Status lamoTRIgine (LAMICTAL) 150 mg tablet Take 150 mg by mouth 2 times daily. Active Norgestimate-Ethinyl Estradiol (ORTHO TRI-CYCLEN LO, 28,) 0.18/0.215/0.25 mg-25 mcg (28) Tab Take 1 tablet by mouth daily. Active amitriptyline (ELAVIL) 25 mg tablet Take 1 tablet by mouth nightly. 30 tablet 3 11/19/2013 Active Active Problems Problem Noted Date Diagnosed Date ABDI (headache) 11/11/2013 Seizures 11/11/2013 Spells 11/11/2013 Social History Tobacco Use Types Packs/Day Years Used Date Smoking Tobacco: Never Smokeless Tobacco: Never Alcohol Use Standard Drinks/Week Comments No 0 (1 standard drink = 0.6 oz pur e alcohol) Sex and Gender Information Value Date Recorded Sex Assigned at Not on file Gender Identity Not on file Sexual Orientation Not on file Last Filed Vital Signs Vital Sign Reading Time Taken Comments Blood Pressure 121/74 11/19/2013 2:05 PM EDT Pulse 86 11/19/2013 2:05 PM EDT Temperature - - Respiratory Rate - - Oxygen Saturation - - Inhaled Oxygen Concentration - - Weight 73.1 kg (161 lb 3.2 oz) 11/19/2013 2:05 P M EDT Height 157.5 cm (5' 2) 11/19/2013 2:05 PM EDT Body Mass Index 29.48 11/19/2013 2:05 PM EDT Plan of Treatment Health Maintenance Due Date Last Done Comments HIV screen 12/20/2005 Hepatitis C Screening 12/20/2005 Hepatitis B vaccine (0-59 yrs) (1) 12/20/2006 Tdap adult 12/20/2006 Tetanus vaccine 12/20/2006 HPV test 12/20/2017 PAP Smear 12/20/2017 Covid-19 Vaccine (1 - 2022-24 season) 2022 Influenza (Flu) vaccine (1 o f 1 - Influenza standard series) 01/01/2024 Care Teams Front Desk Monitor Relationship Specialty Start Date End Date Yelitza Kate, JEWEL GAUGER [address] [place], [place] [phone] PCP - General Internal Medicine 07/01/21
--- OUTSIDE RECORDS SUMMARY | 2023-12-02 14:48 | XMS_ITS | Encounter Summary ---
Author Organization [facility] Address [address] [place] [address] Care Team Providers Care Yardage Control Operator Forming Name Role Phone Unavailable Primary Care Provider Unavailabl e Encounter Details Date Type Department Care Team (Late st Contact Info) Description 06/18/2005 8:52 EST Hospital Encounter [address] [address] Seamus Mullre MD [address] [place] [address], [address] [place] [id number] Social History Tobacco Use Types Packs/Day Years [...]
--- OUTSIDE RECORDS SUMMARY | 2023-12-02 14:48 | XMS_ITS | Continuity of Care Document ---
Author Organization [place] [facility], [facility] Address [address] [place] [address] Assessment No assessment recorded. Plan of Treatment Reminders Order Date Submit Date Provider Last Modified By Organization Details Last Modified Time Details Appointments None recorded. Lab None recorded. Referral None recorded. Procedures None recorded. Surgeries None recorded. Imaging XR, knee, 3 view - left knee twisting injury 1 year ago, still with pain, r/o dislocation 2023 024 [email or web address] Xray, [address] , [place], [address], 4 17:25:23 Medication Orders None recorded. Patient TargetsNo targets recorded. Patient InstructionsNo instructions recorded. Reason for Referral None Reported. Medical Equipment None Reported. Allergies No known drug allergies Medications Name Sig Start Date Stop Date Status Note LastModified by Organization Details LastModified Time Lamictal 200 mg tablet Take 1 tablet twice a day by oral route. active Not Available Not Available No t Available gabapentin 300 mg capsule Take 1 capsule twice a day by oral route. active Not Available Not Available No t Available Nortrel 0.5/35 (28) active Not Available Not Available Not Available Spiriva with HandiHaler active Not Available Not Available N ot Available Xopenex HFA 45 mcg/actuatio n aerosol inhaler Inhale 2 puffs every 6 hours by inhalation route. active Not Available Not Available No t Available Advair HFA active Not Available Not Av ailable Not Available Vitals Date Recorded Body temperature Oxygen saturation Oxygen saturation in Arterial blood by Pulse oximetry Heart rate Body height Body mass index (BMI) Body weight Systolic blood pressure Diastolic blood pressure Provider Name and Address Organization Details Last Updated DateTime 4 97.8 [degF] 99 % 99 % 95 /min 132.08 cm 46.8 kg/m2 85122.6 3 g 120 mm[Hg] 74 mm[Hg] ÁNGEL Toney MA [facility] 16:54:45 Social History None recorded. Functional Status None recorded. Mental Status None recorded. Family History Nothing Reported. Medical History No medical history recorded. Gynecological HistoryNo gynecological history recorded. Obstetrics History GPAL:G 0 P 0 0 0 0 Past Encounters Encounter ID Performer Location Encounter Start Date Encounter Closed Date Diagnosis/Indication Diagnosis SNOMED-CT Code [id number] Summer Paris PA-C [facility] [address] [address] 12/01/2023 16:47:52 12/01/2023 17:25:23 Pain of joint of knee [id number] Health Concerns Section Related Observation LastModified by Organization Detai ls LastModified Time None Recorded Concern Status LastModified by Organization Details LastModified Time None Recorded Payers Encounter Date Sequence Insurance Name Policy Number Policy Yanes Covered Member ID Yanes Member ID Guarantor Name 12/01/2023 1 [facility] (MEDICAID) Yarelis Hargrove [id number] Yarelis Hargrove Notes Date Note Type Note Provider Name and Address Organization Details Recorded Time 12/01/2023 text/html HPI Notes: Pt is a 37 y/o F here for left knee pain that has been occurring for months. She states she had a twisting injury while in a walking foot for a foot injury, since then pain with squatting, bending, kneeling. Feeling like her knee cap is unsteady. After exacerbating movements pt has swelling above her knee. She denies weakness, numbness, tingling. Summer Paris PA-C [address], [place], [address], [facility]. 12/02/2023 09:23:06 OBGyn Episode No OBEpisode recorded.
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
--- OUTSIDE RECORDS SUMMARY | 2023-12-02 14:48 | XMS_ITS | Encounter Summary ---
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 Name Role Phone Sahara Petersen MD Primary Care Provider [phone] Reason for Visit * Reason Comments Procedure OP EEG] Encounter Details Date Type Department Care Team (Latest Contact Info) Description 11/07/2013 9:00 AM EDT Procedure visit Neurology at [facility] [place] [id number] ELECTROENCEPHALO GRAM, NE[place]O [facility] [place] [address] Sahara Petersen MD [address] [place] [address] Seizure (Primary Dx); ABDI (headache); Seizures; Spells Discharge Disposition: Home Social History Tobacco Use Types Packs/Day Years Used Date Smoking Tobacco: Never Assessed Sex and Gender Information Value Date Recorded Sex Assigned at Not on file Gender Identity Not on file Sexual Orientation Not on file documented as of this encounter Patient Instructions * Patient Instructions* Paul Wyman MD - 11/11/2013 6:53 PM EDT EEG REPORT Yarelis Hargrove [id number] 1985 Date of Service: 11/07/2013 Interpreting Physician: Attending: Paul Wyman MD Resident: Yon Phillips MD Referring physician: SAHARA PETERSEN MD BRIEF HISTORY/INDICATION FOR STUDY: Yarelis Hargrove is a 27 y.o. year old patient with history of GTCseizures (none for 18 mo), routine evaluation prior to medication changes for headache management. This EEG is done to assist with anticonvulsant management. Current Medications: Lamotrigine unspecified dose METHODS: A 21 channel digitized electroencephalogram was performed in the [facility]. The 10/20 international system of electrode placement was used andbipolar and referential electrode montages were recorded. In addition to EEG the patient was monitored for EKG and lateral/vertical eye movements. The patient was recorded during wakefulness, drowsiness, sleep, and during the activation procedures of hyperventilation and photic stimulation. Video was not recorded during the session. The duration of the recording was 30 minutes. OBSERVATIONS: Wakefulness: During the awake state with the eyes closed the background consisted of a normal amplitude, 11 Hz posterior reactive rhythm that attenuated appropriately with eye opening. Beta activity was distributed diffusely with an anterior predominance. There was a normal anterior-posterior voltage gradient. With eye opening the background activity changed to a low voltage mixture of alpha, beta, and occasional theta range frequencies. There were no significant asymmetries of background activity noted. Drowsiness and Sleep: With drowsiness there was some waxing and waning of the alpha rhythm with eventual replacement by a mixture of beta, alpha and theta activity. She had evidence of bilateral occipital intermittent rhythmic delta activity at 9:23:19 AM and this persisted through stage I of sleepand into the beginning stage II. As the patient entered stage II of sleep, symmetrical spindles were present. Arousal was unremarkable. Hyperventilation: Hyperventilation resulted in diffuse slowing of the background activity without appearance of abnormal epileptiform activity. Photic Stimulation: Photic stimulation using a step-wang increase in photic frequency varying from 1-21 Hertz resulted in bilateral driving responses at 11- 13 Hertz but no appearance of abnormal epileptiform activity. EKG: EKG revealed normal sinus rhythm. INTERPRETATION: This EEG is normal during the awake as well as during the activation procedures of hyperventilation and photic stimulation. She had a borderline finding reflected in the bilateral OIRDA (occipital intermittent rhythmic delta activity) during sleep. OIRDA is often discovered in patients with an otherwise normal EEG and no epileptiform activity, however it is found with increased frequency in patients with epilepsy. However, because it is found in normal patients too, the presenceof OIRDA is of little predictive value in isolation as there are no other signs of epileptiform activity in this EEG. PRIOR EEG: No previous EEG reports were available. CLINICAL CORRELATION: There is presence of OIRDA (occipital intermittent rhythmic delta activity) during sleep which is found more often in patients with epilepsy, but is also found in normal individuals. This can support the diagnosis of epilepsy made by history, and if there were prior abnormal EEGs. Yon Phillips MD Neurology Resident, PGY-3 Personal Pager [phone] NEURO ATTENDING EEG NOTE: I attest that I have read the entire EEG record, completely; reviewed it with the Neurology Resident Dr. Phillips; directed the composition of the above report; and concur with the documentation. If suspicion for seizure persists, the sensitivity of the test may be increased by obtaining a prolonged sleep recording. Francisco J Wyman MD Copy SAHARA PETERSEN MD [address] / [facility] [id number] documented in this encounter Progress Notes * Paul Wyman MD - 11/11/2013 6:53 PM EDT EEG REPORT Yarelis Hargrove [id number] 1985 Date of Service: 11/07/2013 Interpreting Physician: Attending: Paul Wyman MD Resident: Yon Phillips MD Referring physician: SAHARA PETERSEN MD BRIEF HISTORY/INDICATION FOR STUDY: Yarelis Hargrove is a 27 y.o. year old patient with history of GTCseizures (none for 18 mo), routine evaluation prior to medication changes for headache management. This EEG is done to assist with anticonvulsant management. Current Medications: Lamotrigine unspecified dose METHODS: A 21 channel digitized electroencephalogram was performed in the [facility]. The 10/20 international system of electrode placement was used andbipolar and referential electrode montages were recorded. In addition to EEG the patient was monitored for EKG and lateral/vertical eye movements. The patient was recorded during wakefulness, drowsiness, sleep, and during the activation procedures of hyperventilation and photic stimulation. Video was not recorded during the session. The duration of the recording was 30 minutes. OBSERVATIONS: Wakefulness: During the awake state with the eyes closed the background consisted of a normal amplitude, 11 Hz posterior reactive rhythm that attenuated appropriately with eye opening. Beta activity was distributed diffusely with an anterior predominance. There was a normal anterior-posterior voltage gradient. With eye opening the background activity changed to a low voltage mixture of alpha, beta, and occasional theta range frequencies. There were no significant asymmetries of background activity noted. Drowsiness and Sleep: With drowsiness there was some waxing and waning of the alpha rhythm with eventual replacement by a mixture of beta, alpha and theta activity. She had evidence of bilateral occipital intermittent rhythmic delta activity at 9:23:19 AM and this persisted through stage I of sleepand into the beginning stage II. As the patient entered stage II of sleep, symmetrical spindles were present. Arousal was unremarkable. Hyperventilation: Hyperventilation resulted in diffuse slowing of the background activity without appearance of abnormal epileptiform activity. Photic Stimulation: Photic stimulation using a step-wang increase in photic frequency varying from 1-21 Hertz resulted in bilateral driving responses at 11- 13 Hertz but no appearance of abnormal epileptiform activity. EKG: EKG revealed normal sinus rhythm. INTERPRETATION: This EEG is normal during the awake as well as during the activation procedures of hyperventilation and photic stimulation. She had a borderline finding reflected in the bilateral OIRDA (occipital intermittent rhythmic delta activity) during sleep. OIRDA is often discovered in patients with an otherwise normal EEG and no epileptiform activity, however it is found with increased frequency in patients with epilepsy. However, because it is found in normal patients too, the presenceof OIRDA is of little predictive value in isolation as there are no other signs of epileptiform activity in this EEG. PRIOR EEG: No previous EEG reports were available. CLINICAL CORRELATION: There is presence of OIRDA (occipital intermittent rhythmic delta activity) during sleep which is found more often in patients with epilepsy, but is also found in normal individuals. This can support the diagnosis of epilepsy made by history, and if there were prior abnormal EEGs. Yon Phillips MD Neurology Resident, PGY-3 Personal Pager [phone] NEURO ATTENDING EEG NOTE: I attest that I have read the entire EEG record, completely; reviewed it with the Neurology Resident Dr. Phillips; directed the composition of the above report; and concur with the documentation. If suspicion for seizure persists, the sensitivity of the test may be increased by obtaining a prolonged sleep recording. Francisco J Wyman MD Copy SAHARA PETERSEN MD [address] / [facility] [id number] documented in this encounter Procedure Notes * Paul Wyman MD - 11/07/2013 9:48 AM EDTAssociated Order(s): EEG AWAKE, ASLEEP, DROWSY Procedure(s): EEG INNC. RECORDING AWAKE AND ASLEEP, W. HYPERVENT/PHOTIC STIMU PRFM Pre-Procedure Diagnose(s): Seizure Name:Yarelis Hargrove Test #: [id number] Age: 27 y.o. Referring Provider: Sahara Petersen MD [address] [place] [address] Hours of Sleep: 6 P.C.: 7AM Sleep Deprived: Y Location: OP Date of Study: 11/07/13 Tech: SR Patient History: Possible seizures. Sleep: Obtained Photic Driving: Y Hyperventillation: Y If Hyperventillated Effort Given: G Tech Findings: EEG REPORT Yarelis Hargrove [id number] 1985 Date of Service: 11/07/2013 Interpreting Physician: Attending: Paul Wyman MD Resident: Yon Phillips MD Referring physician: SAHARA PETERSEN MD BRIEF HISTORY/INDICATION FOR STUDY: Yarelis Hargrove is a 27 y.o. year old patient with history of GTCseizures (none for 18 mo), routine evaluation prior to medication changes for headache management. This EEG is done to assist with anticonvulsant management. Current Medications: Lamotrigine unspecified dose METHODS: A 21 channel digitized electroencephalogram was performed in the [facility]. The 10/20 international system of electrode placement was used andbipolar and referential electrode montages were recorded. In addition to EEG the patient was monitored for EKG and lateral/vertical eye movements. The patient was recorded during wakefulness, drowsiness, sleep, and during the activation procedures of hyperventilation and photic stimulation. Video was not recorded during the session. The duration of the recording was 30 minutes. OBSERVATIONS: Wakefulness: During the awake state with the eyes closed the background consisted of a normal amplitude, 11 Hz posterior reactive rhythm that attenuated appropriately with eye opening. Beta activity was distributed diffusely with an anterior predominance. There was a normal anterior-posterior voltage gradient. With eye opening the background activity changed to a low voltage mixture of alpha, beta, and occasional theta range frequencies. There were no significant asymmetries of background activity noted. Drowsiness and Sleep: With drowsiness there was some waxing and waning of the alpha rhythm with eventual replacement by a mixture of beta, alpha and theta activity. She had evidence of bilateral occipital intermittent rhythmic delta activity at 9:23:19 AM and this persisted through stage I of sleepand into the beginning stage II. As the patient entered stage II of sleep, symmetrical spindles were present. Arousal was unremarkable. Hyperventilation: Hyperventilation resulted in diffuse slowing of the background activity without appearance of abnormal epileptiform activity. Photic Stimulation: Photic stimulation using a step-wang increase in photic frequency varying from 1-21 Hertz resulted in bilateral driving responses at 11- 13 Hertz but no appearance of abnormal epileptiform activity. EKG: EKG revealed normal sinus rhythm. INTERPRETATION: This EEG is normal during the awake as well as during the activation procedures of hyperventilation and photic stimulation. She had a borderline finding reflected in the bilateral OIRDA (occipital intermittent rhythmic delta activity) during sleep. OIRDA is often discovered in patients with an otherwise normal EEG and no epileptiform activity, however it is found with increased frequency in patients with epilepsy. However, because it is found in normal patients too, the presenceof OIRDA is of little predictive value in isolation as there are no other signs of epileptiform activity in this EEG. PRIOR EEG: No previous EEG reports were available. CLINICAL CORRELATION: There is presence of OIRDA (occipital intermittent rhythmic delta activity) during sleep which is found more often in patients with epilepsy, but is also found in normal individuals. This can support the diagnosis of epilepsy made by history, and if there were prior abnormal EEGs. Yon Phillips MD Neurology Resident, PGY-3 Personal Pager [phone] NEURO ATTENDING EEG NOTE: I attest that I have read the entire EEG record, completely; reviewed it with the Neurology Resident Dr. Phillips; directed the composition of the above report; and concur with the documentation. If suspicion for seizure persists, the sensitivity of the test may be increased by obtaining a prolonged sleep recording. Francisco J Wyman MD Copy SAHARA PETERSEN MD [address] / [facility] [id number] documented in this encounter Plan of Treatment Not on file documented as of this encounter Procedures Procedure Name Priority Date/Time Associated Diagnosis Comments EEG INNC. RECORDING AWAKE AND ASLEEP, W. HYPERVENT/PHOTIC STIMU PRFM Routine 11/11/2013 6:54 PM EDT Seizure documented in this encounter Results * EEG INNC. RECORDING AWAKE AND ASLEEP, W. HYPERVENT/PHOTIC STIMU PRFM (11/11/2013 6:54 PM EDT) Narrative Paul Wyman MD - 11/11/2013 6:54 PM EDT Paul Wyman MD ? 11/11/2013 ??6:54 PM Name:Yarelis Hargrove ?Test #: ??[id number] ?? [id number] ? Age: ??27 y.o. ? Referring Provider: Sahara Petersen MD [address] [place] [address] Hours of Sleep: 6 ??P.C.: 7AM Sleep Deprived: Y ??Location: OP Date of Study: 11/07/13 ??Tech: SR Patient History: Possible seizures. Sleep: Obtained Photic Driving: Y Hyperventillation: Y ? If Hyperventillated ??Effort Given: G Tech Findings: ?? EEG REPORT Yarelis Hargrove [id number] 1985 Date of Service: 11/07/2013 Interpreting Physician: Attending: Paul Wyman MD ?? Resident: Yon Phillips MD Referring physician: SAHARA PETERSEN MD BRIEF HISTORY/INDICATION FOR STUDY: Yarelis Hargrove is a 27 y.o. year old patient with history of GTC seizures (none for 18 mo), routine evaluation prior to medication changes for headache management. ??This EEG is done to assist with anticonvulsant management. Current Medications: ? Lamotrigine unspecified dose METHODS: ?? A 21 channel digitized electroencephalogram was performed in the [facility]. The 10/20 international system of electrode placement was used and bipolar and referential electrode montages were recorded. ??In addition to EEG the patient was monitored for EKG and lateral/vertical eye movements. The patient was recorded during wakefulness, drowsiness, sleep, and during the activation procedures of hyperventilation and photic stimulation. Video was not recorded during the session. The duration of the recording was 30 minutes. OBSERVATIONS: Wakefulness: ??During the awake state with the eyes closed the background consisted of a normal amplitude, 11 Hz posterior reactive rhythm that attenuated appropriately with eye opening. Beta activity was distributed diffusely with an anterior predominance. ??There was a normal anterior-posterior voltage gradient. ??With eye opening the background activity changed to a low voltage mixture of alpha, beta, and occasional theta range frequencies. There were no significant asymmetries of background activity noted. Drowsiness and Sleep: ?? With drowsiness there was some waxing and waning of the alpha rhythm with eventual replacement by a mixture of beta, alpha and theta activity. ??She had evidence of bilateral occipital intermittent rhythmic delta activity at 9:23:19 AM and this persisted through stage I of sleep and into the beginning ?? stage II. ?? As the patient entered stage II of sleep, symmetrical spindles were present. ??Arousal was unremarkable. Hyperventilation: ?? Hyperventilation resulted in diffuse slowing of the background activity without appearance of abnormal epileptiform activity. Photic Stimulation: ??Photic stimulation using a step-wang increase in photic frequency varying from 1-21 Hertz resulted in bilateral driving responses at 11-13 Hertz but no appearance of abnormal epileptiform activity. EKG: EKG revealed normal sinus rhythm. INTERPRETATION: ??This EEG is normal during the awake as well as during the activation procedures of hyperventilation and photic stimulation. She had a borderline finding reflected in the bilateral OIRDA (occipital intermittent rhythmic delta activity) during sleep. ?? OIRDA is often discovered in patients with an otherwise normal EEG and no epileptiform activity, however it is found with increased frequency in patients with epilepsy. ? However, because it is found in normal patients too, the presence of OIRDA is of little predictive value in isolation as there are no other signs of epileptiform activity in this EEG. PRIOR EEG: ?? No previous EEG reports were available. CLINICAL CORRELATION: ?? There is presence of OIRDA (occipital intermittent rhythmic delta activity) during sleep which is found more often in patients with epilepsy, but is also found in normal individuals. ?? This can support the diagnosis of epilepsy made by history, and if there were prior abnormal EEGs. ?? Yon Phillips MD Neurology Resident, PGY-3 Personal Pager [phone] NEURO ATTENDING EEG NOTE: ?? I attest that I have read the entire EEG record, completely; reviewed it with the Neurology Resident Dr. Phillips; directed the composition of the above report; and concur with the documentation. ??If suspicion for seizure persists, the sensitivity of the test may be increased by obtaining a prolonged sleep recording. Francisco J Wyman MD Copy MD ONOFRE [address]MOS[address]O [address] / [facility] [id number] Procedure Note Paul Wyman MD - 11/07/2013 9:48 AM EDT Name:Yarelis Hargrove Test #: [id number] Age: 27 y.o. Referring Provider: Sahara Petersen MD [address] [place] [address] Hours of Sleep: 6 P.C.: 7AM Sleep Deprived: Y Location: OP Date of Study: 11/07/13 Tech: SR Patient History: Possible seizures. Sleep: Obtained Photic Driving: Y Hyperventillation: Y If Hyperventillated Effort Given: G Tech Findings: EEG REPORT Yarelis Hargrove [id number] 1985 Date of Service: 11/07/2013 Interpreting Physician: Attending: Paul Wyman MD Resident: Yon Phillips MD Referring physician: SAHARA PETERSEN MD BRIEF HISTORY/INDICATION FOR STUDY: Yarelis Hargrove is a 27 y.o. year oldpatient with history of GTC seizures (none for 18 mo), routine evaluationprior to medication changes for headache management. This EEG is done toassist with anticonvulsant management. Current Medications: Lamotrigine unspecified dose METHODS: [facility] The 10/20international system of electrode placement was used and bipolar andreferential electrode montages were recorded. In addition to EEG thepatient was monitored for EKG and lateral/vertical eye movements. Thepatient was recorded during wakefulness, drowsiness, sleep, and during theactivation procedures of hyperventilation and photic stimulation. Videowas not recorded during the session. The duration of the recording was 30minutes. OBSERVATIONS: Wakefulness: During the awake state with the eyes closed the backgroundconsisted of a normal amplitude, 11 Hz posterior reactive rhythm thatattenuated appropriately with eye opening. Beta activity was distributeddiffusely with an anterior predominance. There was a normalanterior-posterior voltage gradient. With eye opening the backgroundactivity changed to a low voltage mixture of alpha, beta, and occasionaltheta range frequencies. There were no significant asymmetries ofbackground activity noted. Drowsiness and Sleep: With drowsiness there was some waxing and waningof the alpha rhythm with eventual replacement by a mixture of beta, alphaand theta activity. She had evidence of bilateral occipital intermittentrhythmic delta activity at 9:23:19 AM and this persisted through stage Iof sleep and into the beginning stage II. As the patient entered stageII of sleep, symmetrical spindles were present. Arousal was unremarkable. Hyperventilation: Hyperventilation resulted in diffuse slowing of thebackground activity without appearance of abnormal epileptiformactivity. Photic Stimulation: Photic stimulation using a step-wang increase inphotic frequency varying from 1-21 Hertz resulted in bilateral drivingresponses at 11-13 Hertz but no appearance of abnormal epileptiformactivity. EKG: EKG revealed normal sinus rhythm. INTERPRETATION: This EEG is normal during the awake as well as during theactivation procedures of hyperventilation and photic stimulation. She hada borderline finding reflected in the bilateral OIRDA (occipitalintermittent rhythmic delta activity) during sleep. OIRDA is oftendiscovered in patients with an otherwise normal EEG and no epileptiformactivity, however it is found with increased frequency in patients withepilepsy. However, because it is found in normal patients too, thepresence of OIRDA is of little predictive value in isolation as there areno other signs of epileptiform activity in this EEG. PRIOR EEG: No previous EEG reports were available. CLINICAL CORRELATION: There is presence of OIRDA (occipital intermittentrhythmic delta activity) during sleep which is found more often inpatients with epilepsy, but is also found in normal individuals. Thiscan support the diagnosis of epilepsy made by history, and if there wereprior abnormal EEGs. Yon Phillips MD Neurology Resident, PGY-3 Personal Pager [phone] NEURO ATTENDING EEG NOTE: I attest that I have read the entire EEGrecord, completely; reviewed it with the Neurology Resident Dr. Phillips;directed the composition of the above report; and concur with thedocumentation. If suspicion for seizure persists, the sensitivity of thetest may be increased by obtaining a prolonged sleep recording. 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
--- OUTSIDE RECORDS SUMMARY | 2023-12-02 14:48 | XMS_ITS | Encounter Summary ---
Author Organization [facility] Address [address] [place] [address] Care Team Providers Care Slabber Name Role Phone Unavailable Primary Care Provider Unavailabl e Encounter Details Date Type Department Care Team (Late st Contact Info) Description 06/02/2005 Before PRISM Converted Visit (Maple) [facility] - Maple conversion [address] [place] [address] Seamus Muller MD [address] [facility], [address] [place] [phone] Social History Tobacco Use Types Packs/Day Years Used Date Smoking Tobacco: Never Assessed Sex and Gender Information Value Date Recorded Sex Assigned at Not on file Gender Identity Not on file Sexual Orientation Not on file documented as of this encounter Progress Notes * Seamus Muller MD - 07/03/2009 7915 EST DIVISION OF OTOLARYNGOLOGY PROGRESS/FOLLOWUP NOTE - 06/18/2005 S:Delvin comes in to follow up after left revision ossiculoplasty with incus inner position. Overall, she has had some increased left ear pain over the last several days, but prior to that was doing well. She thinks her hearingis better. She has had no drainage. O:on the right side looks fine. On the left side, the drum is covered by a thin, bloody crust. WhatI can see of it anteriorly, it looks not inflamed. The middle ear appears ventilated. A repeat audiogram today shows a nice closure to the air bone gap on that side with essentially normal hearing bilaterally. A: Nice hearing result after left revision ossiculoplasty, but with some persistent left otalgia. P: She is going to continue to keep that ear dry and follow up with me in two months to recheck on things. Signed by Seamus Muller MD 06/26/2005 12:42 Hernán Jones MD Seamus Muller MD - Seamus Muller MD A Vitaly brown Job ID: [id number] Document ID: [id number] cc: * Seamus Muller MD - 07/02/2009 2019 EST DIVISION OF OTOLARYNGOLOGY PROGRESS/FOLLOWUP NOTE - 06/02/2005 S:comes in one week after left ossiculoplasty with incus inner position. She has done well except for more pain than expected. That always has been a very sensitive ear. She has not been on any dropsand has no drainage and notes no fever. She has had no vertigo. O: She is alert and appears comfortable. The ear looks fine. The medial Eagle packing was removedtoday without difficulty and the drum appears intact. She noted significant improved hearing with the pack removed. Some Ciprodex drops were instilled in the ear canal. A: Normal course after left ossiculoplasty except for some more than usual pain. P:4 drops b.i.d. for the next seven days and then again for three days prior to seeing me in two tothree weeks. Signed by Seamus Muller MD 06/14/2005 08:21 Hernán Jones MD Seamus Muller MD - Seamus Muller MD A Vitaly brown Job ID: [id number] Document ID: [id number] cc: El Rico MD documented in this encounter Plan of Treatment Not on file documented as of this encounter Visit Diagnoses Not on filedocumented in this encounter
--- OUTSIDE RECORDS SUMMARY | 2023-12-02 14:48 | XMS_ITS | Encounter Summary ---
Author Organization [facility] Address [address] [place] [address] Care Team Providers Care Bread Pan Greaser Name Role Phone Unavailable Primary Care Provider Unavailabl e Encounter Details Date Type Department Care Team (Late st Contact Info) Description 04/28/2005 15:22 [facility] Hospital Encounter [address] [address] Seamus Muller MD [address] [place] [address], [address] [place] [phone] Social History Tobacco Use Types Packs/Day Years [...]
--- OUTSIDE RECORDS SUMMARY | 2023-12-02 14:48 | XMS_ITS | Encounter Summary ---
Author Organization [facility] Address [address] [place] [address] Care Team Providers Care Quality Cloth Tester Name Role Phone Unavailable Primary Care Provider Unavailabl e Encounter Details Date Type Department Care Team (Late st Contact Info) Description 05/25/2005 6:00 EST - 05/25/2005 11:59 EST Hospital Encounter [facility] Perioperative Services- [address] [phone] Seamus Muller MD [address] [place] [address], [address] [place] [phone] Discharge Disposition: Home or Self Care Social History Tobacco Use Types Packs/Day Years Used Date Smoking Tobacco: Never Assessed Sex and Gender Information Value Date Recorded Sex Assigned at Not on file Gender Identity Not on file Sexual Orientation Not on file documented as of this encounter Discharge Disposition Disposition Code Departure Means Destination Home or Self Care documented in this encounter OR Notes * OR Surgeon - Seamus Muller MD - 05/25/2005 0000 EST PROCEDURE REPORT PT TYPE: OPPROC PT LOC: [id number] SERVICE DATE: 05/25/2005 SURGEON: Hernán Jones MDWilliam J Brundage, MD INDOOR LANDSCAPER/GARDENER: Derrick Storm MD PREOPERATIVE DIAGNOSIS: 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 PROCEDURE: Left exploratory tympanotomy with revision ossiculoplasty (incus interposition). ANESTHESIA: General endotracheal. INDICATIONS: The patient is a [id number] who is status post left ossiculoplasty in [place] several years ago. She initially got a good result but subsequently had significant pain in thatear and tinnitus and had worsening hearing. Preoperative audiogram showed a high frequency conductive hearing loss. There was no active infection or inflammation in the ear and eventually the tinnitus and the pain resolved. She is scheduled for revision ossiculoplasty. FINDINGS: Included the chorda tympani nerve preserved. The ear canal was somewhat torturous with a difficult visualization of the inferior drum. There was an ApISJ prosthesis in place, but it seemed to have become lateralized from the stapes superstructure. The stapes itself was intact and mobile. The malleus was intact. The had adhesed down to the promontory. The incus was removed and interposedbetween the malleus and the stapes for repair today. The tympanic membrane was intact. NARRATIVE: The patient taken to the operating room where, after induction of adequate general endotracheal anesthesia, correct patient, ear,and procedure were identified and verified. Left ear was shaved, prepped, and draped in the usual sterile fashion. Lateral and medial canal were injected using2% Xylocaine in 1:50,000 adrenaline solution. Longitudinal incisions at 6 and 12 oclock were made from just lateral to the annulus out to the bony cartilaginous canal and connected transversely along the mid bony canal. The tympanomeatal flap was elevated down to the annulus, annulusand drum elevated, and middle ear examined. The drum was stuck down to the incus long process and Miriam ISJ prosthesis. This was sharply dissected away from the drum and the ISJ prosthesis was noted to be lateralized from the stapes superstructure. ISJ prosthesis was removed. There was significant erosion of the long process of the incus. The drum was checked and there were no perforations. The incus was then removed with some difficulty from the attic and placed in saline on the back table.A measurement was taken between the malleus manubrium and thestapes and found to be approximately 3 mm. The umbo was adhesed out of the promontory and this was sharply divided, mobilizing the malleus. The incus was then carved using a 1.5-mm cutting and 1-mm jovana diego to make an acetabulum to accommodate the stapes and a notch for the manubrium. The distance between these was 3 mm. This was brought onto the surgical field and placed in position with fairly good appr The interposed incus was at a fair angle, but still seemed to be in place. Sound was transmitted, or at least when vibrating the manubrium it seemed to be transmitted well through to thestapes. Some dry Gelfoam was packed around the graft to support it. The tympanomeatal flap was re-placed in anatomic position and the port gamble consisting of Ronnie gauze and cotton in Cortisporin was placed lateral to the drum. The patient was awakened, extubated, and returned to the recovery room in stable condition postop. ESTIMATED BLOOD LOSS: Minimal. FLUIDS: 1 L of lactated Ringer. SPECIMENS: None. COMPLICATIONS: None. DRAINS: None. Signed by Seamus Muller MD 06/06/2005 11:09 Hernán Jones MD Seamus Muller MD - Seamus Muller MD A - ss Job ID: [id number] Document ID: [id number] cc: MD El Robison MD William J Brundage, MD Richard N Hubbell, MD documented in this encounter Plan of Treatment Not on file documented as of this encounter Visit Diagnoses Not on filedocumented in this encounter
--- OUTSIDE RECORDS SUMMARY | 2023-12-02 14:48 | XMS_ITS | Encounter Summary ---
Author Organization [facility] [place] [address] Care Team Providers Care Asic Verification Engineer Name Role Phone Sahara Petersen MD Primary Care Provider [phone] Encounter Details Date Type Department Care Team (Late st Contact Info) Description 11/06/2013 [place] [address] Duy Foss MD [facility] [place] [address] Seizure (Primary Dx) Social History Tobacco Use Types Packs/Day Years Used Date Smoking Tobacco: Never Assessed Sex and Gender Information Value Date Recorded Sex Assigned at Not on file Gender Identity Not on file Sexual Orientation Not on file documented as of this encounter Plan of Treatment Not on file documented as of this encounter Results * EEG INNC. RECORDING AWAKE AND ASLEEP, W. HYPERVENT/PHOTIC STIMU PRFM (11/11/2013 6:54 PM EDT) Narrative Paul Wyman MD - 11/11/2013 6:54 PM EDT Paul Wyman MD ? 11/11/2013 ??6:54 PM Name:Yarelis Hargrove ?Test #: ??14- ?? 1201 ? Age: ??27 y.o. ? Referring Provider: Sahara Petersen MD [facility] [address] [place] [address] Hours of Sleep: 6 ??P.C.: 7AM Sleep Deprived: Y ??Location: OP Date of Study: 11/07/13 ??Tech: SR Patient History: Possible seizures. Sleep: Obtained Photic Driving: Y Hyperventillation: Y ? If Hyperventillated ??Effort Given: G Tech Findings: ?? EEG REPORT Yarelis Hargrove [id number] 1985 Date of Service: 11/07/2013 Interpreting Physician: [...] channel digitized electroencephalogram was performed in the [facility] Clinical Neurophysiology Laboratory. The 10/20 international [...] Phillips MD Neurology Resident, PGY-3 Personal Pager [phone] NEURO ATTENDING EEG NOTE: ?? I attest [...] MD [facility] [address] / [facility] [id number] Procedure Note Paul Wyman MD - 11/07/2013 9:48 AM EDT Name:Yarelis Hargrove Test #: 14- 1201 Age: 27 y.o. Referring Provider: Sahara Petersen MD [facility] [address] [place] [address] Hours of Sleep: 6 P.C.: 7AM Sleep Deprived: Y Location: OP Date of Study: 11/07/13 Tech: SR Patient History: Possible seizures. Sleep: Obtained Photic Driving: Y Hyperventillation: Y If Hyperventillated Effort Given: G Tech Findings: EEG REPORT Yarelis Hargrove [id number] 1985 Date of Service: 11/07/2013 Interpreting Physician: [...] [facility] The 10/20international system [...] Phillips MD Neurology Resident, PGY-3 Personal Pager [phone] NEURO ATTENDING EEG NOTE: I attest that I have read the entire EEGrecord, completely; reviewed it with the Neurology Resident Dr. Phillips;directed the composition of the above report; and concur with thedocumentation. If suspicion for seizure persists, the sensitivity of thetest may be increased by obtaining a prolonged sleep recording. Francisco J Wyman MD Copy SAHARA PETERSEN MD [facility] [address] / [place] [address] Duy Foss MD NEUROLOGY ORDERABLES documented in this encounter Visit Diagnoses Diagnosis Seizure- Primary Other convulsions Seizure- Primary Other convulsions ABDI (headache) Headache Seizures Other convulsions Spells Other convulsions documented in this encounter Care Teams Asic Verification Engineer Relationship Specialty Start Date End Date Sahara Petersen MD [facility] [address] [place] [address] PCP - General 08/15/13 01/26/18 documented as of this encounter
--- OUTSIDE RECORDS SUMMARY | 2023-12-02 14:48 | XMS_ITS | Encounter Summary ---
Author Organization [facility] Address [address] [place] [address] Care Team Providers Care Guideman Name Role Phone Unavailable Primary Care Provider Unavailabl e Encounter Details Date Type Department Care Team (Late st Contact Info) Description 02/05/2005 Before PRISM Converted Visit (Maple) [facility] - Maple conversion [address] [place] [address] Seamus Muller MD [address] [facility], [address] [place] [phone] Social History Tobacco Use Types Packs/Day Years Used Date Smoking Tobacco: Never Assessed Sex and Gender Information Value Date Recorded Sex Assigned at Not on file Gender Identity Not on file Sexual Orientation Not on file documented as of this encounter Progress Notes * Seamus Muller MD - 07/03/2009 1924 EST DIVISION OF ENT PROGRESS/FOLLOWUP NOTE - 02/05/2005 S:comes in followup recommendation of Dr. Russell. She is status post left ossiculoplasty which wassuccessful but two weeks ago had sudden sharp pain in that left ear and decreased hearing. Shehad some mild imbalance as well. Exam has been fairly normal except for what looks like a displaced prosthesis. O: Examination of the right ear looks normal. Examination of the left ear shows what looks like a Hydroxy Apatateprosthesis in the posterior superior quadrant. It is difficult to tell if it is out ofplace but if it is an ISJ prosthesis it likely is. There is no erythema. There is no fluid in the middle ear space. There is no canal inflammation. We did not repeata hearing test, however, the previous one showed a high frequency conductive loss. A: Probable displaced left prosthesis, atypical symptoms of pain and imbalance not responding to oral steroids. P: I gave her a prescription for 20 Tylenol #3 to help with the discomfort. Im leery of operating on this ear too soon. Irather see what happens with the prosthesis if the pain gets better. I told her that the pain is at this point unexplained. She is going to come back and see me in two weeks and hopefully things will be better. Signed by Seamus Muller MD 02/24/2005 09:45 Hernán Jones MD Seamus Muller MD D: - Seamus Muller MD P - kmb Job ID: tape Document ID: [id number] cc: Nelson Russell MD * Seamus Muller MD - 07/03/20091923 EST DIVISION OF ENT PROGRESS/FOLLOWUP NOTE - 02/17/2005 S:comes in to follow up on a right conductive hearing loss after ossiculoplasty as well as pain andtinnitus. She thinks the tinnitus is a little better. She thinks the pain is better as well, but she thinks her hearing may be worse. She has had no drainage. O: Examination still shows the impression of a prosthesis in the posterior superior quadrant in that left drum. The remainder of the ear is benign. The right ear looks fine. Repeat audiogram today shows a slightly worse conductive hearing loss. A: Apparent dislodging of a left middle ear prosthesis. It is reassure that the tinnitus and pain is improving. P: Id rather not go into this ear surgically until the tinnitus and the pain has resolved. I will see her back in two months and at that point we could consider exploration. Signed by Seamus Muller MD 02/24/2005 09:46 Hernán Jones MD Seamus Muller MD D: - Seamus Muller MD P - wlp Job ID: Tape Document ID: [id number] cc: El Rico MD documented in this encounter Plan of Treatment Not on file documented as of this encounter Visit Diagnoses Not on filedocumented in this encounter
--- OUTSIDE RECORDS SUMMARY | 2023-12-02 14:48 | XMS_ITS | Encounter Summary ---
Author Organization [facility] Address [address] [place] [address] Care Team Providers Care Tip Stretcher Name Role Phone Unavailable Primary Care Provider Unavailabl e Encounter Details Date Type Department Care Team (Late st Contact Info) Description 02/17/2005 14:16 EDT Hospital Encounter [address] [address] Seamus Muller MD [address] [place] [address] [address] [place] [phone] Discharge Disposition: Auto Discharge Social History Tobacco Use Types Packs/Day Years Used Date Smoking Tobacco: Never Assessed Sex and Gender Information Value Date Recorded Sex Assigned at Not on file Gender Identity Not on file Sexual Orientation Not on file documented as of this encounter Discharge Disposition Disposition Code Departure Means Destination Auto Discharge documented in this encounter Plan of Treatment Not on file documented as of this encounter Visit Diagnoses Not on filedocumented in this encounter
--- OUTSIDE RECORDS SUMMARY | 2023-12-02 14:48 | XMS_ITS | Encounter Summary ---
Author Organization [facility] Address [address] [place] [address] Care Team Providers Care Tree Specialist Name Role Phone Unavailable Primary Care Provider Unavailabl e Encounter Details Date Type Department Care Team (Late st Contact Info) Description 06/02/2005 14:26 [facility] Hospital Encounter [address] [address] Seamus Muller MD [address] [place] [address], [address] [place] [phone] Social History Tobacco Use Types Packs/Day Years [...]
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
--- OUTSIDE RECORDS SUMMARY | 2023-12-02 14:48 | XMS_ITS ---
Author Organization Unknown Address [address] [place] [phone] Phone Care Team Providers Care Drilling Inspector Name Role Phone DEREK Sue Attending Unavailable UNLISTED PROVIDER - REQUESTED Primary Un available Results BASIC METABOLIC PANEL (BMP) - Collect Date/Time: 05/10/2022 15:48 [facility] ID: [id number] [address], [place], [address] LOINC: 91557-3 Test Value Unit Reference Range Code Code System Flag GLUCOSE 95 mg/dL L=70 H=116 2345-7 LOINC BUN 10 mg/dL L=6 H=25 3094-0 LOINC CREATININE 0.76 mg/dL L=0.51 H=0.95 2160-0 LOINC SODIUM SERUM 141 mmol/L L=136 H=145 2951-2 LOINC POTASSIUM SERUM 4.4 mmol/L L=3.4 H=5.2 2823-3 LOINC CHLORIDE SERUM 102 mmol/L L=96 H=110 2075-0 LOINC CARBON DIOXIDE (CO2) 29 mmol/L L=22 H=34 2028-9 LOINC ANION GAP 9.9 mmol/L 54232-6 LOINC CALCIUM SERUM 9.7 mg/dL L=8.2 H=10.2 43443-5 LOINC AGE 36 years eGFR (non-Afr.Amer.) 87 mL/min 96345-8 LOINC eGFR (Afr-Tanzanian) 105 mL/min 04406-8 LOINC CBC W/ DIFFERENTIAL* - Colle ct Date/Time: 05/10/2022 15:48 [facility] ID: [id number] [address], [place], [address] LOINC: 20149-5 Test Value Unit Reference Range Code Code System Flag WBC 6.92 th/cmm L=5.00 H=10.00 6690-2 LOINC NEUT % 62.1 % L=40.0 H=80.0 LYMPH % 30.5 % L=10.0 H=50.0 MONO % 5.5 % L=2.0 H=12.0 02886-6 LOINC EOS % 0.6 % L=0.0 H=8.0 BASO % 1.0 % L=0.0 H=3.0 IG % 0.3 % L=0.0 H=1.1 2514-8 LOINC NRBC % 0.0 % L=0.0 H=0.0 24392-1 LOINC NEUT abs count 4.3 th/cmm L=1.6 H=8.4 751-8 LOINC LYMPH abs count 2.1 th/cmm L=1.5 H=4.0 731-0 LOINC MONO abs count 0.4 th/cmm L=0.2 H=1.0 742-7 LOINC EOS abs count 0.0 th/cmm L=0.0 H=0.5 711-2 LOINC BASO abs count 0.1 th/cmm L=0.0 H=0.2 704-7 LOINC IG abs count 0.0 th/cmm L=0.0 H=0.1 57282-5 LOINC NRBC abs count 0.0 mil/cmm L=0.0 H=0.0 01540-2 LOINC RBC 5.21 mil/cmm L=3.90 H=5.40 789-8 LOINC HEMOGLOBIN 15.1 gm/dL L=12.0 H=16.0 718-7 LOINC HEMATOCRIT 45 % L=37 H=47 4544-3 LOINC MCV 85 fL L=82 H=92 787-2 LOINC MCH 29.0 pg L=27.0 H=31.0 785-6 LOINC MCHC 33.9 % L=32.0 H=36.0 786-4 LOINC RDW-SD 37.1 fL L=39.0 H=49.0 788-0 LOINC L PLATELET COUNT 368 th/cmm L=150 H=450 777-3 LOINC Social History Type Status Start Date End Date Code Code Syst em Smoking History Never smoker (Never Smoked) [id number] SNOMED CT Sex Female Hospital Discharge Instructions Should you have any questions prior to discharge, please contact a member of your healthcare team. If you have left the hospital and have any questions, please contact your primary care physician. Reason For Referral No Data Found Allergies and Adverse Reactions Allergy Substance Reaction Severity Start Date Concern Status Co de Code System No Known Drug Allergies Active [id number] SNOMED-CT Plan of Treatment PRE-OP TESTING 05/10/2022 PRE-OP COVID-19 TESTING 05/22/2022 Encounters Encounter Diagnosis Start Date Code Code Sys tem Pre-surgery evaluation 05/10/2022 [id number] SNOME D-CT Personal Care Team Section Performer Name Performer Role Active Date Inactive Da fermin
--- OUTSIDE RECORDS SUMMARY | 2023-12-02 14:48 | XMS_ITS | Encounter Summary ---
Author Organization [facility] Address [address] [place] [address] Care Team Providers Care Infantry Assaultman Name Role Phone Unavailable Primary Care Provider Unavailabl e Encounter Details Date Type Department Care Team (Late st Contact Info) Description 01/28/2005 Before PRISM Converted Visit (Maple) [facility] - Maple conversion [address] [place] [address] Nelson Russell MD [address] [facility], [address] [place] [phone] Social History Tobacco Use Types Packs/Day Years Used Date Smoking Tobacco: Never Assessed Sex and Gender Information Value Date Recorded Sex Assigned at Not on file Gender Identity Not on file Sexual Orientation Not on file documented as of this encounter Progress Notes * Nelson Russell MD - 07/03/2009 0159 EST DIVISION OF ENT February 03, 2005 El Rico MD [address] [phone] Dear El: Thanks very much for your second opinion for Yarelis. She was seen in my office on the 28 of January. Examination at that time revealed normal ENT exam except for her left ear. It looks like her prosthesis has slipped and it is now touching the eardrum on that side. I think this certainly accounts for her ringing and her unsteadiness. Certainly her pain doesnaccount for that but it may be allrelated. Ilda put her on a short course of steroids to see if we can calm down the inner ear and shefollowup with Dr. Muller next week in case she needs exploratory surgery on that left side. Thanksvery much for the second opinion. Sincerely, Signed by Nelson Russell MD 02/04/2005 11:36 Carmen Palma MD Nelson Russell MD - Nelson Russell MD P - kmb Job ID: [id number] Document ID: [id number] cc: El Rcio MD documented in this encounter Plan of Treatment Not on file documented as of this encounter Visit Diagnoses Not on filedocumented in this encounter
--- OUTSIDE RECORDS SUMMARY | 2023-12-02 14:48 | XMS_ITS | Encounter Summary ---
Author Organization [facility] Address [address] [place] [address] Care Team Providers Care Medical Record Technician Name Role Phone Unavailable Primary Care Provider Unavailabl e Encounter Details Date Type Department Care Team (Late st Contact Info) Description 07/15/2005 11:03 EST - 07/15/2005 11:59 EST Hospital Encounter [address] [address] Tristin Ellis MD [address] [place] [address], [address] [place] [phone] Discharge Disposition: Auto Discharge Social History Tobacco [...]
--- OUTSIDE RECORDS SUMMARY | 2023-12-02 14:48 | XMS_ITS ---
Author Organization Unknown Address [address] [place] [address] [phone] Phone Care Team Providers Care Key Maker Name Role Phone DEREK Sue Attending Unavailable Results XR FOOT 3V LT* - Completed: 04/01/2022 15:35 LOINC: [facility] RADIOLOGY [place], [place] [address] PACS PHYSICAL THERAPY TEACHER REPORT Patient Name: KAYDEN LAURENT MRN: Sex: : Age: [id number] F 1985 36 Account: Accession: Admit: StayType: [id number] 04/01/2022 CLINIC Ordered: Order ID: Submitted: Ordering Provider: 04/01/2022 15:30 [id number] BSK RYLIE REED Completed: Technologist: Resulted: 04/01/2022 15:36 BSK 04/01/2022 17:52 Study Description: XR FOOT 3V LT* Study Reason: lt foot pain 2D digital imaging was performed. COMPARISON: No exams were available for comparison ? FINDINGS: There is no evidence of acute fracture nor diastasis of the Lisfranc joint. Hallux valgus noted. There are no significant osseous lesions nor erosions. IMPRESSION: Hallux valgus. Report Digitally Signed by Mir Brunson on 04/01/2022 05:52 PM EST Social History Type Status Start Date End Date Code Code Syst em Smoking History Never smoker (Never Smoked) 887504985 SNOMED CT Sex Female Hospital Discharge Instructions [...] Code System No Known Drug Allergies Active 199379970 SNOMED-CT Plan of Treatment PRE-OP TESTING 05/10/2022 PRE-OP COVID-19 TESTING 05/22/2022 Encounters Encounter Diagnosis Start Date Code Code Sys tem 04/01/2022 [id number] SNOMED-CT Personal Care Team Section Performer Name Performer Role Active Date Inactive Da fermin
--- OUTSIDE RECORDS SUMMARY | 2023-12-02 14:48 | XMS_ITS | Encounter Summary ---
Author Organization [facility] Address [address] [place] [address] Care Team Providers Care Bail Attacher Name Role Phone Unavailable Primary Care Provider Unavailabl e Encounter Details Date Type Department Care Team (Late st Contact Info) Description 02/05/2005 11:50 EDT - 02/05/2005 11:59 EDT Hospital Encounter [facility] [place] [address] [place] [address] Seamus Muller MD [address] [facility], [address] [place] [address] Discharge Disposition: Auto Discharge Social History Tobacco [...]
--- OUTSIDE RECORDS SUMMARY | 2023-12-02 14:48 | XMS_ITS | Encounter Summary ---
Author Organization [facility] Address [address] [place] [address] Care Team Providers Care [employer] Combination Teacher Name Role Phone Unavailable Primary Care Provider Unavailabl e Encounter Details Date Type Department Care Team (Late st Contact Info) Description 04/28/2005 Before PRISM Converted Visit (Maple) [facility] - Maple conversion [address] [place] [address] Seamus Muller MD [address] [facility], [address] [place] [phone] Social History Tobacco Use Types Packs/Day Years Used Date Smoking Tobacco: Never Assessed Sex and Gender Information Value Date Recorded Sex Assigned at Not on file Gender Identity Not on file Sexual Orientation Not on file documented as of this encounter Progress Notes * Seamus Muller MD - 07/03/20092106 EST DIVISION OF OTOLARYNGOLOGY PROGRESS/FOLLOWUP NOTE - 04/28/2005 S:comes in to follow up on her left conductive hearing loss. She also had some tinnitus and pain inthis ear after an apparent dislodging of a middle ear prosthesis placed in [facility]. She says that the pain and ringing have improved significantly. The ear now feels fairly normal, although her hearing is still down. She has had no drainage from that ear. O: She is alert and appears comfortable. Examination of the right ear looks normal. Examination of the left ear shows the impression of what looks like Hypodroxy Apatite prosthesis in the posterior superior quadrant of the drum. The middle ear is well ventilated. Overall its unchanged. A repeat audiogram today shows a persistent predominantly high frequency conductive loss with excellent discrimination. A: Persistent conductive loss after left ossiculoplasty with apparent dislodgement of the prosthesis. Luckily the pain and tinnitus have resolved. P: We discussed exploration of the ear with revision ossiculoplasty. We certainly discussed the possibility of their being a persistent and larger conductive loss in that ear or perforation after this procedure as well as the unlikely possibility of persistent vertigo, inner ear hearing loss, or facial nerve injury. She and her sister, who is her guardian, understand this and wish to proceed. We will schedule this in the operating room in the near future. Signed by Seamus Muller MD 05/10/2005 15:03 Hernán Jones MD Seamus Muller MD D: - Seamus Muller MD P - wlp Job ID: Tape Document ID: [id number] cc: El Rico MD documented in this encounter Plan of Treatment Not on file documented as of this encounter Visit Diagnoses Not on filedocumented in this encounter
--- OUTSIDE RECORDS SUMMARY | 2023-12-02 14:48 | XMS_ITS | Encounter Summary ---
Author Organization [facility] [address] Care Team Providers Care Scrap Hooker Name Role Phone Yelitza Kate ALLIED HEALTH PROFESSIONAL Primary Care Provider [phone] Encounter Details Date Type Department Care Team (Late st Contact Info) Description 07/01/2021 Trans[place] [address] Yelitza Kate APRN [address] [place] [address] Social History Tobacco Use Types Packs/Day Years [...] on filedocumented in this encounter Care Teams Scrap Hooker Relationship Specialty Start Date End Date Yelitza Kate APRN [address] [place] [address] PCP - General Internal Medicine 07/01/21 documented as of this encounter
--- OUTSIDE RECORDS SUMMARY | 2023-12-02 14:49 | XMS_ITS ---
Author Organization Unknown Address [address] [place] [address] [phone] Phone Care Team Providers Care Regional Director Name Role Phone DEREK Sue Attending Unavailable ARIELLE Sue Primary Unavailable Social History Type Status Start Date End Date Code Code Syst em Smoking History Never smoker (Never Smoked) 327081724 SNOMED CT Sex Female Hospital Discharge Instructions [...] Code System No Known Drug Allergies Active 706980347 SNOMED-CT Plan of Treatment PRE-OP TESTING 05/10/2022 PRE-OP COVID-19 TESTING 05/22/2022 Encounters Encounter Diagnosis Start Date Code Code Sys tem 05/10/2022 [id number] SNOMED-CT Personal Care Team Section Performer Name Performer Role Active Date Inactive Da fermin
--- OUTSIDE RECORDS SUMMARY | 2023-12-02 14:49 | XMS_ITS ---
Author Organization Unknown Address [address] [place] [address] [phone] Phone Care Team Providers Care Returns Processor Name Role Phone DEREK Sue Attending Unavailable JENNIFER SHAH CRNA Unavailable UNLISTED PROVIDER - REQUESTED Primary Un available Results TEST QUAL (URINE) - Collect Date/Time: 05/25/2022 06:45 [facility] ID: [id number] [address] [place] [address], 56 LOINC: 2105-06 Test Value Unit Reference Range Code Code System Flag TEST NEGATIVE 2105-06 LOINC XR C-ARM FOOT 3V LT NO CHARG E - Completed: 05/25/2022 11:28 LOINC: [facility] RADIOLOGY [place], [place] [address] PACS WOODWIND INSTRUMENTS INSPECTOR REPORT Patient Name: KAYDEN LAURENT MRN: Sex: : Age: [id number] F 1985 36 Account: Accession: Admit: StayType: [id number] 05/25/2022 O/P Ordered: Order ID: Submitted: Ordering Provider: 05/25/2022 07:15 [id number] RYLIE LERNER Completed: Technologist: Resulted: 05/25/2022 11:28 KVK 05/25/2022 11:38 Study Description: XR C-ARM WRIST 3V4V RT NO CHARGE Study Reason: [id number] Comparison: 01 April 2022 Fluoroscopy was provided for the referring physician. 2D and real time imaging was performed. Please see procedure note for details. Fluoroscopy time: 7.3 seconds Total dose: 0.011 mGy Report Digitally Signed by Abbie Montoya on 05/25/2022 11:38 AM EST Social History Type Status Start Date End Date Code Code Syst em Smoking History Never smoker (Never Smoked) 728679707 SNOMED CT Sex Female Vital Signs Vital Sign Value Unit [place] Value [place] Unit Date/Time Recent/Initial? Code Code System Body Mass Index 32.01 kg/m2 05/10/2022 12:06 Initial 17776 -5 [facility] Systolic Blood Pressure 100 mm[Hg] 05/25/2022 10:48 Initial 8480- 6 [facility] Diastolic Blood Pressure 69 mm[Hg] 05/25/2022 10:48 Initial 8462- 4 [facility] Body Surface Area 1.86 m2 05/10/2022 12:06 Initial 3140- 1 LOINC Height 157.480 0 cm 62.00 in 05/10/2022 12:06 Initial 8302- 2 LOINC O2 Saturation 96 % 2022 10:48 Initial 10653 -5 [facility] Pulse 98.0 /min 05/25/2022 10:48 Initial 8867- 4 LOINC Respiration 19 /min 05/25/19 10:48 Initial 9279- 1 LOINC Temperature 36.5 Elizabeth 97.7 F 05/25/19 10:48 Initial 8310- 5 LOINC Weight 79.38 kg 175.00 lbs 05/10/2022 12:06 Initial 16523 -7 [facility] Hospital Discharge Instructions Should you have any questions prior to discharge, please contact a member of your healthcare team. If you have left the hospital and have any questions, please contact your primary care physician. Reason For Referral No Data Found Procedures Procedure Name Date Status Code Code Med m Corrj Hallux Valgus w/Sesmdc w/1Metar Medial Cnf 05/25/2022 completed 02454 CPT Osteotomy, Metatarsal, w/wo Lengthening/Shortening/Ang Correction; Not 1st Metatarsal, Each 05/25/2022 completed 33840 CPT Anesthesia, Open Proc, Bones , Lower Leg/Ankle/Foot; NOS 05/25/2022 completed 97822 CPT Allergies and Adverse Reactions Allergy Substance Reaction Severity Start Date Concern Status Co de Code System No Known Drug Allergies Active 512817654 SNOMED-CT Plan of Treatment PRE-OP TESTING 05/10/2022 PRE-OP COVID-19 TESTING 05/22/2022 Encounters Encounter Diagnosis Start Date Code Code Sys tem Hallux valgus (acquired), left foot 05/25/2022 SNOMED-CT Personal Care Team Section Performer Name Performer Role Active Date Inactive Da fermin
--- OUTSIDE RECORDS SUMMARY | 2023-12-02 14:49 | XMS_ITS ---
Author Organization Unknown Address [address] [place] [address] [phone] Phone Care Team Providers Care Crop Insurance Claims Adjuster Name Role Phone DEREK Sue Attending Unavailable UNLISTED PROVIDER - REQUESTED Primary Un available Social History Type Status Start Date End Date Code Code Syst em Smoking History Never smoker (Never Smoked) 609146968 SNOMED CT Sex Female Hospital Discharge Instructions [...] Code System No Known Drug Allergies Active 054063242 SNOMED-CT Plan of Treatment PRE-OP TESTING 05/10/2022 PRE-OP COVID-19 TESTING 05/22/2022 Encounters Encounter Diagnosis Start Date Code Code Sys tem Refusal of treatment by patient 05/31/2022 696228994 SNOMED-CT Personal Care Team Section Performer Name Performer Role Active Date Inactive Da te
--- OUTSIDE RECORDS SUMMARY | 2023-12-02 14:49 | XMS_ITS ---
Author Organization Unknown Address [address] [place], [place] [phone] Phone Care Team Providers Care Uncrater Name Role Phone DEREK Sue Attending Unavailable UNLISTED PROVIDER - REQUESTED Primary Un available [facility] - Leila ect Date/Time: 05/22/2022 09:48 [facility] ID: [id number] [address] [place] [address], [id number] LOINC: 61053-5 Test Value Unit Reference Range Code Code System Flag Tier- PRE-OP 87627-7 LOINC SARS COV2 RNA: NEGATIVE REFERENCE RANGE: NEGAT 07909-1 L OINC Social History Type Status Start Date End Date Code Code Syst em Smoking History Never smoker (Never Smoked) 037014532 SNOMED CT Sex Female Hospital Discharge Instructions [...] Code System No Known Drug Allergies Active 497229359 SNOMED-CT Plan of Treatment PRE-OP TESTING 05/10/2022 PRE-OP COVID-19 TESTING 05/22/2022 Encounters Encounter Diagnosis Start Date Code Code Sys tem Pre-surgery testing 05/22/2022 296747051 SNOMED-C T Personal Care Team Section Performer Name Performer Role Active Date Inactive Da te
--- OUTSIDE RECORDS SUMMARY | 2023-12-02 14:50 | XMS_ITS ---
Author Organization Unknown Address [address] [place] [address] [phone] Phone Care Team Providers Care Manager Business Operations Name Role Phone DEREK Sue Attending Unavailable UNLISTED PROVIDER - REQUESTED Primary Un available Social History Type Status Start Date End Date Code Code Syst em Smoking History Never smoker (Never Smoked) 769512049 SNOMED CT Sex Female Hospital Discharge Instructions [...] Code System No Known Drug Allergies Active 392915915 SNOMED-CT Plan of Treatment PRE-OP TESTING 05/10/2022 PRE-OP COVID-19 TESTING 05/22/2022 Encounters Encounter Diagnosis Start Date Code Code Sys tem Follow-up orthopedic assessment 06/02/2022 057826333 SNOMED-CT Personal Care Team Section Performer Name Performer Role Active Date Inactive Da te
--- OUTSIDE RECORDS SUMMARY | 2023-12-02 14:50 | XMS_ITS ---
Author Organization Unknown Address [address] [place] [address] [phone] Phone Care Team Providers Care Bar Captain Name Role Phone DEREK Sue Attending Unavailable Social History Type Status Start Date End Date Code Code Syst em Smoking History Never smoker (Never Smoked) 978233353 SNOMED CT Sex Female Hospital Discharge Instructions [...] Code System No Known Drug Allergies Active 285812919 SNOMED-CT Plan of Treatment PRE-OP TESTING 05/10/2022 PRE-OP COVID-19 TESTING 05/22/2022 Encounters Encounter Diagnosis Start Date Code Code Sys tem 05/25/2022 505982218899457 SNOMED-CT Personal Care Team Section Performer Name Performer Role Active Date Inactive Da fermin
--- OUTSIDE RECORDS SUMMARY | 2023-12-02 14:51 | XMS_ITS ---
Author Organization Unknown Address [address] [place] [address] [phone] Phone Care Team Providers Care Poultry Farmer Name Role Phone DEREK Sue Attending Unavailable UNLISTED PROVIDER - REQUESTED Primary Un available Social History Type Status Start Date End Date Code Code Syst em Smoking History Never smoker (Never Smoked) 500773135 SNOMED CT Sex Female Hospital Discharge Instructions [...] Code System No Known Drug Allergies Active 418499687 SNOMED-CT Plan of Treatment PRE-OP TESTING 05/10/2022 PRE-OP COVID-19 TESTING 05/22/2022 Encounters Encounter Diagnosis Start Date Code Code Sys tem Follow-up orthopedic assessment 06/29/2022 356921238 SNOMED-CT Personal Care Team Section Performer Name Performer Role Active Date Inactive Da te
--- OUTSIDE RECORDS SUMMARY | 2023-12-02 14:51 | XMS_ITS ---
Author Organization Unknown Address [address] [place] [address] [phone] Phone Care Team Providers Care Steel Heater Name Role Phone DEREK Sue Attending Unavailable UNLISTED PROVIDER - REQUESTED Primary Un available Results XR FOOT 3V LT* - Completed: 06/10/2022 14:37 LOINC: [facility] RADIOLOGY [place], [place] [address] PACS BOOM STICK WORKER REPORT Patient Name: KAYDEN LAURENT MRN: Sex: : Age: [id number] F 1985 36 Account: Accession: Admit: StayType: [id number] 06/10/2022 CLINIC Ordered: Order ID: Submitted: Ordering Provider: 06/10/2022 14:23 [id number] [facility] RYLIE REED Completed: Technologist: Resulted: 06/10/2022 14:37 JHONATAN 06/10/2022 15:46 Study Description: XR FOOT 3V LT* Study Reason: BUNIONETTE Technique: 2D digital imaging was performed. 3 images were obtained. COMPARISON: None. FINDINGS: The patient's foot is in a cast. Bones: No acute fractures present. No bony destructive lesion is seen. There is stable postsurgical changes in the left foot. Joints: No dislocation is present. Soft tissues: Unremarkable. IMPRESSION: Stable postsurgical changes of the left foot. Report Digitally Signed by Jonathan Vasquez on 06/10/2022 03:46 PM EST Social History Type Status Start Date End Date Code Code Syst em Smoking History Never smoker (Never Smoked) 617227206 SNOMED CT Sex Female Hospital Discharge Instructions [...] Code System No Known Drug Allergies Active 057606910 Virgin PlayOMED-CT Plan of Treatment PRE-OP TESTING 05/10/2022 PRE-OP COVID-19 TESTING 05/22/2022 Encounters Encounter Diagnosis Start Date Code Code Sys tem Arthralgia of the ankle and/or foot 06/10/2022 16992 4009 SNScannx-CT Personal Care Team Section Performer Name Performer Role Active Date Inactive Da te
--- OUTSIDE RECORDS SUMMARY | 2023-12-02 14:51 | XMS_ITS ---
Author Organization Unknown Address [address] [place] [address] [phone] Phone Care Team Providers Care Developer Automatic Name Role Phone DEREK Sue Attending Unavailable UNLISTED PROVIDER - REQUESTED Primary Un available Results XR FOOT 3V LT* - Completed: 06/21/2022 15:25 LOINC: [facility] RADIOLOGY [place], [place] [address] PACS E COMMERCE MANAGER REPORT Patient Name: KAYDEN LAURENT MRN: Sex: : Age: [id number] F 1985 36 Account: Accession: Admit: StayType: [id number] 06/21/2022 CLINIC Ordered: Order ID: Submitted: Ordering Provider: 06/21/2022 14:22 [id number] RYLIE LEIVA Completed: Technologist: Resulted: 06/21/2022 14:22 06/21/2022 14:42 Study Description: XR FOOT 3V LT* Study Reason: lt foot pain Technique: 2D digital imaging was performed. 3 images were obtained. COMPARISON: Comparisons with prior examinations. FINDINGS: Bones: There is been no change in alignment of the fifth metatarsal fracture. No bony destructive lesion is seen. Joints: No dislocation is present. There are again seen postsurgical changes at the first tarsometatarsal joint. Soft tissues: Soft tissue swelling of the foot is noted. IMPRESSION: Overall, stable appearance of the left foot. Report Digitally Signed by Jonathan Vasquez on 06/21/2022 02:42 PM EST Social History Type Status Start Date End Date Code Code Syst em Smoking History Never smoker (Never Smoked) 868517928 SNOMED CT Sex Female Hospital Discharge Instructions [...] Code System No Known Drug Allergies Active 289667704 SNOMED-CT Plan of Treatment PRE-OP TESTING 05/10/2022 PRE-OP COVID-19 TESTING 05/22/2022 Encounters Encounter Diagnosis Start Date Code Code Sys tem 06/21/2022 175146255016027 SNOMED-CT Personal Care Team Section Performer Name Performer Role Active Date Inactive Da te
--- OUTSIDE RECORDS SUMMARY | 2023-12-02 14:51 | XMS_ITS ---
Author Organization Unknown Address [address] [place] [address] [phone] Phone Care Team Providers Care Gamma Facilities Operator Name Role Phone DEREK Sue Attending Unavailable UNLISTED PROVIDER - REQUESTED Primary Un available Results XR FOOT 3V LT* - Completed: 07/19/2022 15:06 LOINC: [facility] RADIOLOGY [place], [place] [address] PACS MACHINE INSTALLER REPORT Patient Name: KAYDEN LAURENT MRN: Sex: : Age: [id number] F 1985 36 Account: Accession: Admit: StayType: [id number] 07/19/2022 CLINIC Ordered: Order ID: Submitted: Ordering Provider: 07/19/2022 13:56 [id number] RYLIE LEIVA Completed: Technologist: Resulted: 07/19/2022 13:56 07/19/2022 14:11 Study Description: XR FOOT 3V LT Study Reason: LT FOOT PAIN Technique: 2D digital imaging was performed. 3 images were obtained. COMPARISON: Comparison is made with prior examinations. FINDINGS: Bones: No acute fractures present. No bony destructive lesion is seen. Joints: No dislocation is present. Stable postsurgical changes of a first tarsometatarsal joint fusion and the fifth metatarsal osteotomy are unchanged. The joint spaces are well-maintained. The bones are normally mineralized. Soft tissues: Unremarkable. IMPRESSION: Stable postsurgical changes of the foot. Report Digitally Signed by Jonathan Vasquez on 07/19/2022 02:11 PM EDT Social History Type Status Start Date End Date Code Code Syst em Smoking History Never smoker (Never Smoked) 370230459 SNOMED CT Sex Female Hospital Discharge Instructions [...] Code System No Known Drug Allergies Active 798858327 SNOMED-CT Plan of Treatment PRE-OP TESTING 05/10/2022 PRE-OP COVID-19 TESTING 05/22/2022 Encounters Encounter Diagnosis Start Date Code Code Sys tem Follow-up orthopedic assessment 07/19/2022 705499302 SNOMED-CT Personal Care Team Section Performer Name Performer Role Active Date Inactive Da te
--- OUTSIDE RECORDS SUMMARY | 2023-12-02 14:52 | XMS_ITS ---
Author Organization Unknown Address [address] [place] [address] [phone] Phone Care Team Providers Care Director Inpatient Headache Program Name Role Phone DEREK Sue Attending Unavailable UNLISTED PROVIDER - REQUESTED Primary Un available Social History Type Status Start Date End Date Code Code Syst em Smoking History Never smoker (Never Smoked) 502478848 SNOMED CT Sex Female Hospital Discharge Instructions [...] Code System No Known Drug Allergies Active 738920404 SNOMED-CT Plan of Treatment PRE-OP TESTING 05/10/2022 PRE-OP COVID-19 TESTING 05/22/2022 Encounters Encounter Diagnosis Start Date Code Code Sys tem Pain due to internal prosthetic device 10/11/2022 21 6013218 SNOMED-CT Personal Care Team Section Performer Name Performer Role Active Date Inactive Da te
--- OUTSIDE RECORDS SUMMARY | 2023-12-02 14:52 | XMS_ITS ---
Author Organization Unknown Address [address] [place] [address] [phone] Phone Care Team Providers Care Crew Person Name Role Phone DEREK Sue Attending Unavailable UNLISTED PROVIDER - REQUESTED Primary Un available Results XR FOOT 3V LT* - Completed: 08/18/2022 16:28 LOINC: [facility] RADIOLOGY [place], [place] [address] PACS FLEET MAINTENANCE MANAGER REPORT Patient Name: KAYDEN LAURENT MRN: Sex: : Age: [id number] F 1985 36 Account: Accession: Admit: StayType: [id number] 08/18/2022 CLINIC Ordered: Order ID: Submitted: Ordering Provider: 08/18/2022 13:21 [id number] EMO RYLIE REED Completed: Technologist: Resulted: 08/18/2022 16:28 EMO 08/18/2022 19:10 Study Description: XR FOOT 3V LT Study Reason: Pain 3Images were obtained. COMPARISON: X-rays 07/19/2022. FINDINGS: Again noted is dorsal fusion hardware at the first tarsometatarsal joint with dorsal fusion plate and oblique screw at this level. Also fifth metatarsal osteotomy screw again noted. Small calcific density is seen in the soft tissues adjacent to the midshaft of the fifth metatarsal. No new osseous findings. No radiographic evidence of osteomyelitis. Bone density is normal. IMPRESSION: Stable appearance. Report Digitally Signed by Mir Brunson on 08/18/2022 07:10 PM EDT Social History Type Status Start Date End Date Code Code Syst em Smoking History Never smoker (Never Smoked) 874122526 SNOMED CT Sex Female Hospital Discharge Instructions [...] Code System No Known Drug Allergies Active 841148359 SNOMED-CT Plan of Treatment PRE-OP TESTING 05/10/2022 PRE-OP COVID-19 TESTING 05/22/2022 Encounters Encounter Diagnosis Start Date Code Code Sys tem Follow-up orthopedic assessment 08/18/2022 808896047 SNOMED-CT Personal Care Team Section Performer Name Performer Role Active Date Inactive Da te
--- OUTSIDE RECORDS SUMMARY | 2023-12-02 14:52 | XMS_ITS ---
Author Organization Unknown Address [address] [place] [address] [phone] Phone Care Team Providers Care Mobile Application Tester Name Role Phone DEREK Sue Attending Unavailable UNLISTED PROVIDER - REQUESTED Primary Un available Social History Type Status Start Date End Date Code Code Syst em Smoking History Never smoker (Never Smoked) 083933204 SNOMED CT Sex Female Hospital Discharge Instructions Should you have any questions prior to discharge, please contact a member of your healthcare team. If you have left the hospital and have any questions, please contact your primary care physician. Reason For Referral No Data Found Procedures Procedure Name Date Status Code Code Syste m Removal, Implant; Deep 12/02/2022 completed CP T Allergies and Adverse Reactions Allergy Substance Reaction Severity Start Date Concern Status Co de Code System No Known Drug Allergies Active 019354248 SNOMED-CT Plan of Treatment PRE-OP TESTING 05/10/2022 PRE-OP COVID-19 TESTING 05/22/2022 Encounters Encounter Diagnosis Start Date Code Code Sys tem Pain due to internal orthope dic prosthetic devices, implants and grafts, initial encounter 12/02/2022 S NOMED-CT Personal Care Team Section Performer Name Performer Role Active Date Inactive Da te
--- OUTSIDE RECORDS SUMMARY | 2023-12-02 14:52 | XMS_ITS ---
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
== END ==
PROVIDERS: PCP Nurse Practitioner; Visit Provider Family Medicine
DX: S89.92XA Unspecified injury of left lower leg, initial encounter (principal)
CPT/HCPCS: 73564

== ENCOUNTER 2023-12-20 17:15 | Outpatient (REF) | payer MEDICAID, SELFPAY ==
[2023-12-20 16:48] LABS: Abs Immature Grans 0.01 10^3/uL (0.0-0.06); Absolute Basophil Count 0.05 10^3/uL (0.0-0.2); Absolute Eosinophil Count 0.02 10^3/uL (0.0-0.7); Absolute Lymphocyte Count 1.74 10^3/uL (1.2-3.4); Absolute Monocyte Count 0.37 10^3/uL (0.1-0.8); Absolute Neutrophil Count 3.79 10^3/uL (1.2-6.7); Basophils % 0.8 %; Eosinophils % 0.3 %; HCT 43.5 % (36.0-46.0); HGB 14.1 g/dL (11.2-15.7); Immature Grans % 0.2 %; Lymphocytes % 29.1 %; MCH 28.5 pg (27.0-33.0); MCHC 32.4 % (32.0-36.0); MCV 88 fL (80-95); MPV 9.8 fL (8.0-11.0); Monocytes % 6.2 %; Neutrophils % 63.4 %; Platelet Count 315 10^3/uL (130-400); RBC 4.95 10^6/uL (3.93-5.22); RDW 12.3 % (11.7-14.6); RDW-SD 40.1 fL; WBC 5.98 10^3/uL (4.4-10.8)
[2023-12-21 12:15] LABS: IgE 15 IU/mL (<158)
== END 2023-12-20 17:16 | disposition home or self-care (01) ==
LOC: LBN 17:15
PROVIDERS: PCP Nurse Practitioner; Visit Provider Internal Medicine Critical Care Medicine
DX: J45.20 Mild intermittent asthma, uncomplicated (principal)
CPT/HCPCS: 82785; 85025

== ENCOUNTER 2024-08-28 00:31 | Outpatient (CLI) | payer MEDICAID, SELFPAY ==
[2024-08-28 09:16] LABS: Hemoglobin A1C 5.2 % (<5.7)
[2024-08-28 10:03] LABS: Calculated LDL 108 mg/dL (<100); Cholesterol 186 mg/dL (<200); HDL Cholesterol 67 mg/dL (>or=50); Triglyceride 56 mg/dL (<150)
[2024-08-28 19:11] LABS: Hepatitis C Ab w Rflx HCV PCR Negative (Negative)
[2024-08-28 19:26] LABS: HIV-1/2 Ag & Ab Screen Negative (Negative)
== END 2024-08-28 00:32 | disposition home or self-care (01) ==
LOC: LBO 00:31
PROVIDERS: PCP Nurse Practitioner; Visit Provider Nurse Practitioner Family
DX: Z00.00 Encounter for general adult medical examination without abnormal findings (principal)
CPT/HCPCS: 36415; 80061; 86803; 87389; 83036

== ENCOUNTER 2024-12-24 15:01 | Outpatient (CLI) | payer MEDICAID, SELFPAY ==
--- NOTE | 2024-12-24 14:44 | DI.RAD_ITS ---
Exam(s) XR CHEST 2V PA LATERAL EXAM: XR CHEST 2V PA LATERAL CLINICAL HISTORY: Repeated palpitations without explanation R00.2 J45.20 ASTHMA. TECHNIQUE: 2D digital imaging was performed. COMPARISON: CR XR CHEST 1 VW from 08/18/2020 FINDINGS: 2 views: Heart size is normal. The mediastinum is not widened. Lungs are clear. No infiltrates nor pleural effusions. Small symmetric density in the mid-lower right lung appears unchanged from previous and is probably just vessels. IMPRESSION: No acute pulmonary findings.No significant change compared to outside chest x- ray of July 2020. DATA REPOSITORY: RADIATION DOSE DELIVERED:
== END 2024-12-24 15:21 ==
LOC: DI 15:01
PROVIDERS: PCP Nurse Practitioner; Visit Provider Family Medicine
DX: R00.2 Palpitations (principal); J45.20 Mild intermittent asthma, uncomplicated
CPT/HCPCS: 71046

== ENCOUNTER 2024-12-25 11:01 | Outpatient (CLI) | payer MEDICAID, SELFPAY | END 2024-12-25 11:02 | disposition home or self-care (01) | PROVIDERS: PCP Nurse Practitioner; Visit Provider Family Medicine | DX: R00.2 Palpitations (principal); R55 Syncope and collapse | CPT/HCPCS: 93246 ==

== ENCOUNTER 2025-02-05 07:07 | Outpatient (CLI) | payer MEDICAID, SELFPAY ==
--- NOTE | 2025-02-05 09:43 | W.CARDEVENT ---
Date of service: 02/05/25 Time of Service: 09:43 Cardiac Event Recorder Referring Provider:: Kenneth Oliva Indications:: Palpitations Cardiac Event Note: This is a cardiac event monitor. Patient was monitored for 11 days and 41 minutes. Rhythm throughout was sinus with an average heart rate of 90. Minimum was 50, maximum 188 There were very very rare isolated atrial and ventricular ectopic beats There was no atrial fibrillation, no high-grade AV block, no pauses greater than 3 seconds. Reported symptoms correlated to sinus rhythm
== END 2025-02-05 07:08 | disposition home or self-care (01) ==
LOC: CARDOPNVT 07:07
PROVIDERS: PCP Nurse Practitioner; Visit Provider Internal Medicine Cardiovascular Disease
DX: R00.2 Palpitations (principal)
CPT/HCPCS: 93248